=== PATIENT | female | born 1925 | race Caucasian/White ===

== ENCOUNTER 2016-09-15 00:05 | Inpatient (IN) | payer MEDICARE, BC ==
[2016-09-15] VITALS (31 sets, daily range): BP systolic 85–127; BP diastolic 41–100
[~2016-09-15] VITALS: Ht 157.5 cm; Wt 73.5 kg
[2016-09-15] MEDS ORDERED: AMIODARONE 150 MG/3 ML VIAL IV ONE ×3 (01:15→01:18)
[2016-09-15] MEDS ORDERED: IV D5W 100 ML IV ONE (01:17)
[2016-09-15] MEDS ORDERED: IV SET PRIMARY PUMP SET 1 EA INFUS.SET MC ONE ×2 (01:20→09:18)
[2016-09-15] MEDS ORDERED: AMIODARONE 900 MG in IV D5W 482 ML IV PRN (01:30)
[2016-09-15] MEDS ORDERED: AMIODARONE 150 MG in IV D5W 100 ML IV ONE (01:30)
[2016-09-15] MEDS ORDERED: ONDANSETRON HCL/PF 4 MG/2 ML VIAL IVP PRN (01:30)
[2016-09-15] MEDS ORDERED: ZOLPIDEM TARTRATE 5 MG TABLET PO PRN (01:30)
[2016-09-15] MEDS ORDERED: MAG HYDROX/AL HYDROX/SIMETH 30 ML UDC PO PRN (01:30)
[2016-09-15] MEDS ORDERED: MAGNESIUM HYDROXIDE 30 ML UDC PO PRN (01:30)
[2016-09-15] MEDS ORDERED: ENOXAPARIN SODIUM 40 MG/0.4 ML DISP.SYRIN SQ SCH ×2 (01:30→21:00)
[2016-09-15] MEDS ORDERED: HYDROCODONE/APAP 5/325MG 1 EACH TABLET PO PRN (01:30)
[2016-09-15] MEDS ORDERED: IV D5W 500 ML IV ONE ×2 (01:39→05:16)
[2016-09-15] MEDS ORDERED: ENOXAPARIN SODIUM 40 MG/0.4 ML DISP.SYRIN SQ ONE (02:39)
[2016-09-15 07:29] LABS: BASOPHILS % (AUTO) 0.2 % (0.0-2.0); DIFF TOTAL % 100 %; EOSINOPHILS # (AUTO) 0.5 /CMM (0.0-0.7); EOSINOPHILS % (AUTO) 4.1 % (0.0-6.0); HEMATOCRIT 38 % (33-45); HEMOGLOBIN 12.8 g/dL (11.5-14.8); LYMPHOCYTES # (AUTO) 3.7 /CMM (0.8-4.8); LYMPHOCYTES % (AUTO) 33.4 % (20.0-44.0); MEAN CORPUSCULAR HEMOGLOBIN 33 PG (26.0-33.0); MEAN CORPUSCULAR HGB CONC 34 g/dl (31.0-36.0); MEAN CORPUSCULAR VOLUME 97 fL (82-100); MONOCYTES # (AUTO) 1.1 /CMM (0.1-1.30); MONOCYTES % (AUTO) 10.2 % (2.0-12.0); NEUTROPHILS # (AUTO) 5.9 /CMM (1.8-8.9); NEUTROPHILS % (AUTO) 52.1 % (43.0-81.0); PLATELET COUNT (AUTO) 213 /CMM (150-450); RED BLOOD CELL COUNT(AUTO) 3.85 MIL/uL (4.0-5.2); WHITE BLOOD COUNT (AUTO) 11.2 K/uL (4.3-11.0)
[2016-09-15 07:57] LABS: CALCIUM, SERUM 8.6 mg/dL (8.5-10.1); CREATININE 1.2 mg/dL (0.6-1.3); PHOSPHORUS 4.3 mg/dL (2.5-4.9); POTASSIUM 4.4 mmol/L (3.5-5.1)
[2016-09-15 07:58] LABS: ABG BASE EXCESS 1.2 mmol/L; ABG HCO3 29.9 mmol/L; ABG NOTIFIED WHOM RN; ABG PCO2 67.2 mmHg (35.0-45.0); ABG PH 7.266 (7.350-7.450); ABG PO2 55.4 mmHg (75.0-100.0); ABG TOTAL HEMOGLOBIN 13.2 G/dL (12.0-16.0); ALLEN TEST PASSED; AaDO2 13.9 mmHg; O2Hb 83.2 % (94.0-97.0)
[2016-09-15] MEDS: ALBUTEROL HALF STRENGTH 1.25 MG/3 ML VIAL.NEB NEB PRN (08:07)
[2016-09-15] MEDS: IPRATROPIUM NEB FS 0.5 MG/2.5 ML AMPUL.NEB NEB PRN (08:07)
[2016-09-15] MEDS ORDERED: BUMETANIDE INJ 4 MG in IV NS 0.9% 24 ML IV ONE (08:30)
[2016-09-15] MEDS ORDERED: BUMETANIDE INJ 4 MG in IV NS 0.9% 24 ML IV STA (08:55)
[2016-09-15] MEDS ORDERED: FUROSEMIDE 40 MG/4 ML VIAL IV SCH (09:00)
[2016-09-15 11:16] LABS: ABG BASE EXCESS 4.6 mmol/L; ABG HCO3 30.9 mmol/L; ABG PCO2 53.5 mmHg (35.0-45.0); ABG PO2 87.3 mmHg (75.0-100.0); ALLEN TEST Pass; AaDO2 136.4 mmHg; O2Hb 94.3 % (94.0-97.0)
[2016-09-15] MEDS: Z GUARD REMEDY 2 OZ OINT TP PRN (12:42)
[2016-09-15] MEDS: PANTOPRAZOLE 40 MG VIAL IV SCH (13:19)
[2016-09-15] MEDS: ENOXAPARIN SODIUM 30 MG/0.3 ML DISP.SYRIN SQ SCH (21:20)
[2016-09-16] VITALS (34 sets, daily range): BP systolic 91–142; BP diastolic 52–96
[2016-09-16 04:42] LABS: BASOPHILS # (AUTO) 0.2 /CMM (0.0-0.2); BASOPHILS % (AUTO) 2.4 % (0.0-2.0); DIFF TOTAL % 100 %; EOSINOPHILS # (AUTO) 0.3 /CMM (0.0-0.7); EOSINOPHILS % (AUTO) 3.1 % (0.0-6.0); HEMATOCRIT 38 % (33-45); HEMOGLOBIN 13.1 g/dL (11.5-14.8); LYMPHOCYTES # (AUTO) 2.3 /CMM (0.8-4.8); LYMPHOCYTES % (AUTO) 22.6 % (20.0-44.0); MEAN CORPUSCULAR HEMOGLOBIN 33 PG (26.0-33.0); MEAN CORPUSCULAR HGB CONC 34 g/dl (31.0-36.0); MEAN CORPUSCULAR VOLUME 97 fL (82-100); MONOCYTES # (AUTO) 0.8 /CMM (0.1-1.30); MONOCYTES % (AUTO) 7.7 % (2.0-12.0); NEUTROPHILS # (AUTO) 6.6 /CMM (1.8-8.9); NEUTROPHILS % (AUTO) 64.2 % (43.0-81.0); PLATELET COUNT (AUTO) 211 /CMM (150-450); RED BLOOD CELL COUNT(AUTO) 3.93 MIL/uL (4.0-5.2); WHITE BLOOD COUNT (AUTO) 10.2 K/uL (4.3-11.0)
[2016-09-16] MEDS ORDERED: HALOPERIDOL LACTATE INJ 5 MG/ML VIAL ONE (05:08)
[2016-09-16] MEDS ORDERED: HALOPERIDOL LACTATE INJ 5 MG/ML VIAL IVP ONE (05:15)
[2016-09-16 05:51] LABS: CALCIUM, SERUM 8.8 mg/dL (8.5-10.1); CREATININE 1.4 mg/dL (0.6-1.3); PHOSPHORUS 3.6 mg/dL (2.5-4.9); POTASSIUM 3.8 mmol/L (3.5-5.1)
[2016-09-16] MEDS ORDERED: PANT40TA2 PO (07:58)
[2016-09-16] MEDS ORDERED: ARIP2TAB9 PO (07:58)
[2016-09-16] MEDS ORDERED: HYDR-4077 PO (07:58)
[2016-09-16] MEDS ORDERED: BISO5TAB7 PO (07:58)
[2016-09-16] MEDS ORDERED: MIRT15TA7 PO (07:58)
[2016-09-16] MEDS ORDERED: AMIODARONE 900 MG in IV D5W 482 ML IV PRN (08:51)
[2016-09-16] MEDS: PANTOPRAZOLE 40 MG VIAL IV SCH (08:57)
[2016-09-16] MEDS: AMIODARONE 900 MG in IV D5W 482 ML IV PRN (09:46)
[2016-09-16 10:26] LABS: ABG BASE EXCESS 2.9 mmol/L; ABG HCO3 26.9 mmol/L; ABG PH 7.456 (7.350-7.450); ABG PO2 146.8 mmHg (75.0-100.0); ABG TOTAL HEMOGLOBIN 13.1 G/dL (12.0-16.0); ALLEN TEST Pass; AaDO2 93.6 mmHg; O2Hb 96.5 % (94.0-97.0)
[2016-09-16] MEDS: methylPREDNISolone SOD SUCC 40 MG/ML VIAL IV SCH ×3 (11:12→23:27)
[2016-09-16] MEDS: ENOXAPARIN SODIUM 30 MG/0.3 ML DISP.SYRIN SQ SCH (20:35)
[2016-09-16] MEDS: MORPHINE SULFATE INJ 2 MG/ML DISP.SYRIN IV PRN (21:29)
[2016-09-17] VITALS (42 sets, daily range): BP systolic 94–156; BP diastolic 51–95
[2016-09-17 04:40] LABS: BASOPHILS % (AUTO) 0.2 % (0.0-2.0); DIFF TOTAL % 100 %; HEMATOCRIT 39 % (33-45); HEMOGLOBIN 13.1 g/dL (11.5-14.8); LYMPHOCYTES % (AUTO) 8.3 % (20.0-44.0); MEAN CORPUSCULAR HEMOGLOBIN 33 PG (26.0-33.0); MEAN CORPUSCULAR HGB CONC 33 g/dl (31.0-36.0); MEAN CORPUSCULAR VOLUME 98 fL (82-100); MONOCYTES # (AUTO) 0.2 /CMM (0.1-1.30); MONOCYTES % (AUTO) 1.6 % (2.0-12.0); NEUTROPHILS # (AUTO) 10.5 /CMM (1.8-8.9); NEUTROPHILS % (AUTO) 89.9 % (43.0-81.0); PLATELET COUNT (AUTO) 220 /CMM (150-450); WHITE BLOOD COUNT (AUTO) 11.6 K/uL (4.3-11.0)
[2016-09-17 04:54] LABS: CALCIUM, SERUM 8.9 mg/dL (8.5-10.1); CREATININE 1.4 mg/dL (0.6-1.3); PHOSPHORUS 4.4 mg/dL (2.5-4.9); POTASSIUM 3.9 mmol/L (3.5-5.1)
[2016-09-17] MEDS: methylPREDNISolone SOD SUCC 40 MG/ML VIAL IV SCH ×4 (05:12→23:14)
[2016-09-17] MEDS: MORPHINE SULFATE INJ 2 MG/ML DISP.SYRIN IV PRN (05:33)
[2016-09-17] MEDS: PANTOPRAZOLE 40 MG VIAL IV SCH (08:07)
[2016-09-17] MEDS: AMIODARONE 900 MG in IV D5W 482 ML IV PRN (09:33)
[2016-09-17] MEDS ORDERED: METOPROLOL SUCCINATE 25 MG TAB.SR.24H PO SCH (10:30)
[2016-09-17] MEDS: AMIODARONE HCL 200 MG TABLET PO SCH ×2 (11:00→20:09)
[2016-09-17] MEDS: MUPIROCIN OINT 2% 22 GM TUBE SCH ×2 (11:00→20:07)
[2016-09-17] MEDS: METOPROLOL TARTRATE 25 MG TABLET PO SCH ×2 (11:00→20:08)
[2016-09-17 11:57] LABS: ABG BASE EXCESS 4.7 mmol/L; ABG HCO3 29.7 mmol/L; ABG PCO2 45.5 mmHg (35.0-45.0); ABG PH 7.433 (7.350-7.450); ABG PO2 78.6 mmHg (75.0-100.0); ABG TOTAL HEMOGLOBIN 13.5 G/dL (12.0-16.0); ALLEN TEST Pass; AaDO2 168.8 mmHg; O2Hb 93.9 % (94.0-97.0)
[2016-09-17] MEDS: ARIPIPRAZOLE 2 MG TABLET PO SCH (13:42)
[2016-09-17] MEDS: MIRTAZAPINE 15 MG TABLET PO SCH (13:42)
[2016-09-17] MEDS: ENOXAPARIN SODIUM 30 MG/0.3 ML DISP.SYRIN SQ SCH (20:08)
[2016-09-17] MEDS ORDERED: ARIPIPRAZOLE 2 MG TABLET PO SCH (22:00)
[2016-09-17] MEDS ORDERED: MIRTAZAPINE 15 MG TABLET PO SCH (22:00)
[2016-09-18] VITALS (14 sets, daily range): BP systolic 109–175; BP diastolic 56–123
[2016-09-18 04:47] LABS: BASOPHILS # (AUTO) 0.1 /CMM (0.0-0.2); BASOPHILS % (AUTO) 0.7 % (0.0-2.0); DIFF TOTAL % 100 %; EOSINOPHILS % (AUTO) 0.1 % (0.0-6.0); HEMATOCRIT 42 % (33-45); HEMOGLOBIN 14.1 g/dL (11.5-14.8); LYMPHOCYTES # (AUTO) 0.5 /CMM (0.8-4.8); LYMPHOCYTES % (AUTO) 4.2 % (20.0-44.0); MEAN CORPUSCULAR HEMOGLOBIN 33 PG (26.0-33.0); MEAN CORPUSCULAR HGB CONC 34 g/dl (31.0-36.0); MEAN CORPUSCULAR VOLUME 97 fL (82-100); MONOCYTES % (AUTO) 8.7 % (2.0-12.0); NEUTROPHILS # (AUTO) 10.1 /CMM (1.8-8.9); NEUTROPHILS % (AUTO) 86.3 % (43.0-81.0); PLATELET COUNT (AUTO) 213 /CMM (150-450); RED BLOOD CELL COUNT(AUTO) 4.32 MIL/uL (4.0-5.2); WHITE BLOOD COUNT (AUTO) 11.7 K/uL (4.3-11.0)
[2016-09-18 05:06] LABS: CREATININE 1.6 mg/dL (0.6-1.3); POTASSIUM 4.1 mmol/L (3.5-5.1)
[2016-09-18] MEDS: methylPREDNISolone SOD SUCC 40 MG/ML VIAL IV SCH ×3 (05:12→16:49)
[2016-09-18] MEDS: METOPROLOL TARTRATE 25 MG TABLET PO SCH (08:40)
[2016-09-18] MEDS: AMIODARONE HCL 200 MG TABLET PO SCH ×2 (08:40→21:40)
[2016-09-18] MEDS: PANTOPRAZOLE 40 MG VIAL IV SCH (08:40)
[2016-09-18] MEDS: MUPIROCIN OINT 2% 22 GM TUBE SCH (08:41)
[2016-09-18] MEDS ORDERED: METOPROLOL TARTRATE 25 MG TABLET PO ONE (10:00)
[2016-09-18] MEDS ORDERED: IV NS 0.9% 1,000 ML IV PRN (11:17)
[2016-09-18] MEDS ORDERED: IV SET PRIMARY PUMP SET 1 EA INFUS.SET MC ONE (16:43)
[2016-09-18] MEDS: BOOST PLUS FOOD-CHOCLATE 237 ML BOX PO SCH (16:50)
[2016-09-18] MEDS ORDERED: METOPROLOL TARTRATE 25 MG TABLET PO SCH (21:00)
[2016-09-18] MEDS: ARIPIPRAZOLE 2 MG TABLET PO SCH (21:40)
[2016-09-18] MEDS: MIRTAZAPINE 15 MG TABLET PO SCH (21:40)
[2016-09-18] MEDS: ENOXAPARIN SODIUM 30 MG/0.3 ML DISP.SYRIN SQ SCH (21:49)
[2016-09-19] VITALS: BP 129/72
[2016-09-19] MEDS: MUPIROCIN OINT 2% 22 GM TUBE SCH ×3 (00:41→20:26)
[2016-09-19] MEDS: ALBUTEROL HALF STRENGTH 1.25 MG/3 ML VIAL.NEB NEB PRN ×2 (00:48→10:23)
[2016-09-19] MEDS: IPRATROPIUM NEB FS 0.5 MG/2.5 ML AMPUL.NEB NEB PRN ×2 (00:48→10:23)
[2016-09-19 04:00] VITALS: BP 140/68
[2016-09-19] MEDS: ACETAMINOPHEN 325 MG TABLET PO PRN (06:16)
[2016-09-19 08:00] VITALS: BP 115/53
[2016-09-19] MEDS: BOOST PLUS FOOD-CHOCLATE 237 ML BOX PO SCH ×2 (08:00→16:44)
[2016-09-19] MEDS: methylPREDNISolone SOD SUCC 40 MG/ML VIAL IV SCH ×2 (09:23→16:41)
[2016-09-19] MEDS: METOPROLOL TARTRATE 25 MG TABLET PO SCH ×2 (09:24→20:23)
[2016-09-19] MEDS: AMIODARONE HCL 200 MG TABLET PO SCH ×2 (09:24→20:23)
[2016-09-19] MEDS: PANTOPRAZOLE 40 MG VIAL IV SCH (09:27)
[2016-09-19 10:06] LABS: ABG BASE EXCESS 3.5 mmol/L; ABG HCO3 27.9 mmol/L; ABG PCO2 41.9 mmHg (35.0-45.0); ABG PH 7.442 (7.350-7.450); ABG PO2 79.7 mmHg (75.0-100.0); ALLEN TEST Pass; O2Hb 94.3 % (94.0-97.0)
[2016-09-19 12:00] VITALS: BP 91/43
[2016-09-19 16:00] VITALS: BP 105/51
[2016-09-19] MEDS: ALBUTEROL HALF STRENGTH 1.25 MG/3 ML VIAL.NEB NEB SCH ×3 (16:13→23:39)
[2016-09-19] MEDS: IPRATROPIUM NEB FS 0.5 MG/2.5 ML AMPUL.NEB NEB SCH ×3 (16:13→23:39)
[2016-09-19] MEDS: ACETYLCYSTEINE 10% SOLN 400 MG/4 ML VIAL NEB SCH ×2 (17:30→23:39)
[2016-09-19 20:00] VITALS: BP_SYST 98; BP_DIAS 58; BP_DIAS 59
[2016-09-19] MEDS: ENOXAPARIN SODIUM 30 MG/0.3 ML DISP.SYRIN SQ SCH (20:24)
[2016-09-19] MEDS: MIRTAZAPINE 15 MG TABLET PO SCH (22:35)
[2016-09-19] MEDS: ARIPIPRAZOLE 2 MG TABLET PO SCH (22:35)
[2016-09-20] VITALS (58 sets, daily range): BP systolic 61–121; BP diastolic 23–70
[2016-09-20] MEDS: MORPHINE SULFATE INJ 2 MG/ML DISP.SYRIN IV PRN ×2 (02:10→23:16)
[2016-09-20] MEDS: IPRATROPIUM NEB FS 0.5 MG/2.5 ML AMPUL.NEB NEB SCH ×6 (04:33→23:27)
[2016-09-20] MEDS: ALBUTEROL HALF STRENGTH 1.25 MG/3 ML VIAL.NEB NEB SCH ×6 (04:33→23:27)
[2016-09-20] MEDS ORDERED: METOPROLOL TARTRATE INJ 5 MG/5 ML AMPUL ONE (05:22)
[2016-09-20] MEDS ORDERED: METOPROLOL TARTRATE INJ 5 MG/5 ML AMPUL IVP PRN (05:30)
[2016-09-20] MEDS: ACETYLCYSTEINE 10% SOLN 400 MG/4 ML VIAL NEB SCH ×3 (07:12→23:27)
[2016-09-20] MEDS: BOOST PLUS FOOD-CHOCLATE 237 ML BOX PO SCH ×2 (08:00→15:45)
[2016-09-20 08:38] LABS: ABG BASE EXCESS 3.8 mmol/L; ABG HCO3 28.3 mmol/L; ABG PCO2 41.9 mmHg (35.0-45.0); ABG PH 7.447 (7.350-7.450); ABG PO2 54.9 mmHg (75.0-100.0); ABG TOTAL HEMOGLOBIN 14.6 G/dL (12.0-16.0); ALLEN TEST Pass; AaDO2 334.1 mmHg; O2Hb 85.9 % (94.0-97.0)
[2016-09-20] MEDS: AMIODARONE HCL 200 MG TABLET PO SCH (09:00)
[2016-09-20] MEDS: METOPROLOL TARTRATE 25 MG TABLET PO SCH (09:00)
[2016-09-20] MEDS: MUPIROCIN OINT 2% 22 GM TUBE SCH ×2 (09:48→20:35)
[2016-09-20] MEDS: methylPREDNISolone SOD SUCC 40 MG/ML VIAL IV SCH ×2 (09:49→16:33)
[2016-09-20] MEDS: PANTOPRAZOLE 40 MG VIAL IV SCH (09:49)
[2016-09-20] MEDS ORDERED: IV SET PRIMARY PUMP SET 1 EA INFUS.SET MC ONE ×4 (10:20→23:42)
[2016-09-20] MEDS ORDERED: AMIODARONE 150 MG in IV D5W 100 ML IV ONE (10:30)
[2016-09-20] MEDS ORDERED: FEE PK DOSING 1 MIN EA MC ONE (10:42)
[2016-09-20] MEDS: IV D5/ 0.9% NACL 1,000 ML IV SCH (10:49)
[2016-09-20] MEDS: AMIODARONE 900 MG in IV D5W 482 ML IV PRN (11:34)
[2016-09-20] MEDS: VANCOMYCIN 0.75 GM in IV D5W 250 ML IV SCH (11:37)
[2016-09-20 11:42] LABS: BASOPHILS % (AUTO) 0.1 % (0.0-2.0); DIFF TOTAL % 100 %; HEMATOCRIT 41 % (33-45); HEMOGLOBIN 13.5 g/dL (11.5-14.8); LYMPHOCYTES # (AUTO) 0.6 /CMM (0.8-4.8); LYMPHOCYTES % (AUTO) 4.3 % (20.0-44.0); MEAN CORPUSCULAR HEMOGLOBIN 32 PG (26.0-33.0); MEAN CORPUSCULAR HGB CONC 33 g/dl (31.0-36.0); MEAN CORPUSCULAR VOLUME 97 fL (82-100); MONOCYTES # (AUTO) 0.2 /CMM (0.1-1.30); MONOCYTES % (AUTO) 1.4 % (2.0-12.0); NEUTROPHILS # (AUTO) 13.6 /CMM (1.8-8.9); NEUTROPHILS % (AUTO) 94.2 % (43.0-81.0); PLATELET COUNT (AUTO) 219 /CMM (150-450); RED BLOOD CELL COUNT(AUTO) 4.18 MIL/uL (4.0-5.2); WHITE BLOOD COUNT (AUTO) 14.4 K/uL (4.3-11.0)
[2016-09-20 12:01] LABS: CALCIUM, SERUM 9.4 mg/dL (8.5-10.1); CREATININE 3.2 mg/dL (0.6-1.3); POTASSIUM 3.7 mmol/L (3.5-5.1)
[2016-09-20] MEDS ORDERED: IV NS 0.9% 250 ML IV ONE ×3 (14:17→15:00)
[2016-09-20] MEDS: PIPERACILLIN /TAZOBACTAM 2.25 G in IV D5W 50 ML IV SCH ×2 (14:42→20:36)
[2016-09-20] MEDS ORDERED: IV NS 0.9% 500 ML IV ONE (15:00)
[2016-09-20] MEDS: ENOXAPARIN SODIUM 30 MG/0.3 ML DISP.SYRIN SQ SCH (21:30)
[2016-09-20] MEDS: ARIPIPRAZOLE 2 MG TABLET PO SCH (21:45)
[2016-09-20] MEDS: MIRTAZAPINE 15 MG TABLET PO SCH (21:45)
[2016-09-20] MEDS ORDERED: IV D5W 250 ML IV ONE (23:42)
[2016-09-20] MEDS: NOREPINEPHRINE 8 MG in IV D5W 500 ML IV PRN (23:47)
[2016-09-21] VITALS (104 sets, daily range): BP systolic 10–131; BP diastolic 27–89
[2016-09-21] MEDS: IPRATROPIUM NEB FS 0.5 MG/2.5 ML AMPUL.NEB NEB SCH ×6 (02:58→23:54)
[2016-09-21] MEDS: ALBUTEROL HALF STRENGTH 1.25 MG/3 ML VIAL.NEB NEB SCH ×6 (02:58→23:54)
[2016-09-21] MEDS: IV D5/ 0.9% NACL 1,000 ML IV SCH ×3 (03:52→20:17)
[2016-09-21] MEDS: PIPERACILLIN /TAZOBACTAM 2.25 G in IV D5W 50 ML IV SCH ×3 (05:00→20:17)
[2016-09-21] MEDS: BOOST PLUS FOOD-CHOCLATE 237 ML BOX PO SCH (08:00)
[2016-09-21] MEDS: MUPIROCIN OINT 2% 22 GM TUBE SCH ×2 (08:15→20:19)
[2016-09-21] MEDS: Z GUARD REMEDY 2 OZ OINT TP PRN ×2 (08:15→20:18)
[2016-09-21] MEDS: PANTOPRAZOLE 40 MG VIAL IV SCH (08:15)
[2016-09-21] MEDS: methylPREDNISolone SOD SUCC 40 MG/ML VIAL IV SCH ×2 (08:15→16:07)
[2016-09-21] MEDS ORDERED: IV NS 0.9% 500 ML IV ONE (08:19)
[2016-09-21] MEDS: ACETYLCYSTEINE 10% SOLN 400 MG/4 ML VIAL NEB SCH ×4 (09:00→23:54)
[2016-09-21 09:11] LABS: THYROID STIMULATING HORMONE 0.184 uIU/mL (0.358-3.74)
[2016-09-21 09:25] LABS: ABG BASE EXCESS -1.7 mmol/L; ABG HCO3 22.5 mmol/L; ABG PCO2 36.4 mmHg (35.0-45.0); ABG PH 7.408 (7.350-7.450); ABG PO2 66.9 mmHg (75.0-100.0); ABG TOTAL HEMOGLOBIN 13.1 G/dL (12.0-16.0); ALLEN TEST Pass; AaDO2 609.7 mmHg; O2Hb 90.9 % (94.0-97.0)
[2016-09-21] MEDS: AMIODARONE 900 MG in IV D5W 482 ML IV PRN (09:41)
[2016-09-21] MEDS: VANCOMYCIN 0.75 GM in IV D5W 250 ML IV SCH (10:18)
[2016-09-21 10:41] LABS: DIFF TOTAL % 100 %; HEMATOCRIT 36 % (33-45); HEMOGLOBIN 11.9 g/dL (11.5-14.8); LYMPHOCYTES # (AUTO) 0.9 /CMM (0.8-4.8); LYMPHOCYTES % (AUTO) 4.9 % (20.0-44.0); MEAN CORPUSCULAR HEMOGLOBIN 32 PG (26.0-33.0); MEAN CORPUSCULAR HGB CONC 33 g/dl (31.0-36.0); MEAN CORPUSCULAR VOLUME 99 fL (82-100); MONOCYTES # (AUTO) 7.3 /CMM (0.1-1.30); NEUTROPHILS # (AUTO) 9.6 /CMM (1.8-8.9); NEUTROPHILS % (AUTO) 54.1 % (43.0-81.0); PLATELET COUNT (AUTO) 189 /CMM (150-450); RED BLOOD CELL COUNT(AUTO) 3.67 MIL/uL (4.0-5.2); WHITE BLOOD COUNT (AUTO) 17.7 K/uL (4.3-11.0)
[2016-09-21 10:54] LABS: CALCIUM, SERUM 8.4 mg/dL (8.5-10.1); CREATININE 3.8 mg/dL (0.6-1.3); POTASSIUM 3.3 mmol/L (3.5-5.1)
[2016-09-21 11:09] LABS: BAND % (MANUAL) 20 % (0.0-5.0); LYMPHOCYTES % (MANUAL) 4 % (16-48)
[2016-09-21 11:10] LABS: ANISOCYTOSIS 1+; PLATELET ESTIMATE ADEQUATE
[2016-09-21] MEDS ORDERED: SECONDARY IV SET 1 EA INFUS.SET MC ONE (12:57)
[2016-09-21] MEDS ORDERED: IV SET PRIMARY PUMP SET 1 EA INFUS.SET MC ONE (12:57)
[2016-09-21] MEDS ORDERED: ETOMIDATE 2 MG/ML VIAL IV ONE ×2 (13:00→13:30)
[2016-09-21] MEDS ORDERED: DEXTROSE 50%-WATER 50 ML DISP.SYRIN IV PRN (13:00)
[2016-09-21] MEDS ORDERED: SUCCINYLCHOLINE CHLORIDE 20 MG/ML VIAL IV ONE ×2 (13:00→13:30)
[2016-09-21] MEDS ORDERED: PROPOFOL 100 ML IV PRN (13:30)
[2016-09-21] MEDS: PROPOFOL 100 ML IV PRN ×2 (14:10→20:49)
[2016-09-21] MEDS: MORPHINE SULFATE INJ 2 MG/ML DISP.SYRIN IV PRN (14:30)
[2016-09-21] MEDS: ACETAMINOPHEN 325 MG TABLET PO PRN (16:08)
[2016-09-21 16:55] LABS: ABG BASE EXCESS -4.9 mmol/L; ABG HCO3 20.9 mmol/L; ABG PCO2 41.4 mmHg (35.0-45.0); ABG PH 7.321 (7.350-7.450); ABG PO2 78.9 mmHg (75.0-100.0); ABG TOTAL HEMOGLOBIN 13.2 G/dL (12.0-16.0); ALLEN TEST Pass; AaDO2 592.7 mmHg; O2Hb 92.5 % (94.0-97.0)
[2016-09-21] MEDS: INSULIN REGULAR, HUMAN 100 UNIT/ML 3 ML VIAL SQ PRN ×2 (17:08→23:40)
[2016-09-21] MEDS: BLOOD SUGAR DIAGNOSTIC 1 EACH STRIP IN SCH ×2 (17:09→23:33)
[2016-09-21] MEDS ORDERED: POTASSIUM CHLORIDE 20 MEQ POWDER PACKET GT ONE (17:15)
[2016-09-21] MEDS: NOREPINEPHRINE 8 MG in IV D5W 500 ML IV PRN (18:35)
[2016-09-21] MEDS: HEPARIN SODIUM, PORCINE 5000 UNITS/1 ML VIAL SQ SCH (20:19)
[2016-09-21 20:54] LABS: KETONES,URINE NEGATIVE (NEGATIVE); LEUKOCYTE ESTERASE ,URINE 1+ (NEGATIVE); PH,URINE 5.5 (5.0-8.0)
[2016-09-21 20:58] LABS: ADD UA MICROSCOPIC YES
[2016-09-21 21:10] LABS: ADD URINE CULTURE YES; FINE GRANULAR CASTS,URINE Few /LPF (None Seen)
[2016-09-21] MEDS: MIRTAZAPINE 15 MG TABLET PO SCH (22:11)
[2016-09-21] MEDS: ARIPIPRAZOLE 2 MG TABLET PO SCH (22:11)
[2016-09-22] VITALS (73 sets, daily range): BP systolic 89–134; BP diastolic 44–71
[2016-09-22] MEDS ORDERED: IV D5W 250 ML IV ONE ×2 (00:48→22:01)
[2016-09-22] MEDS ORDERED: IV SET PRIMARY PUMP SET 1 EA INFUS.SET MC ONE ×3 (00:48→22:01)
[2016-09-22] MEDS: ALBUTEROL HALF STRENGTH 1.25 MG/3 ML VIAL.NEB NEB SCH ×5 (04:00→20:04)
[2016-09-22] MEDS: IPRATROPIUM NEB FS 0.5 MG/2.5 ML AMPUL.NEB NEB SCH ×5 (04:00→20:04)
[2016-09-22 04:46] LABS: BASOPHILS % (AUTO) 0.1 % (0.0-2.0); DIFF TOTAL % 100 %; HEMATOCRIT 36 % (33-45); HEMOGLOBIN 11.7 g/dL (11.5-14.8); LYMPHOCYTES # (AUTO) 0.7 /CMM (0.8-4.8); LYMPHOCYTES % (AUTO) 2.2 % (20.0-44.0); MEAN CORPUSCULAR HEMOGLOBIN 32 PG (26.0-33.0); MEAN CORPUSCULAR HGB CONC 33 g/dl (31.0-36.0); MEAN CORPUSCULAR VOLUME 99 fL (82-100); MONOCYTES # (AUTO) 0.2 /CMM (0.1-1.30); MONOCYTES % (AUTO) 0.7 % (2.0-12.0); PLATELET COUNT (AUTO) 195 /CMM (150-450); RED BLOOD CELL COUNT(AUTO) 3.64 MIL/uL (4.0-5.2)
[2016-09-22] MEDS: NOREPINEPHRINE 8 MG in IV D5W 500 ML IV PRN ×2 (04:53→17:14)
[2016-09-22] MEDS ORDERED: MEROPENEM 500 MG in IV NS 0.9% 50 ML IV SCH (05:00)
[2016-09-22 05:04] LABS: BILIRUBIN,DIRECT 0.5 mg/dL (0.0-0.2); BILIRUBIN,TOTAL 0.8 mg/dL (0.2-1.0); CALCIUM, SERUM 8.3 mg/dL (8.5-10.1); CREATININE 4.2 mg/dL (0.6-1.3); INDIRECT BILIRUBIN 0.3 mg/dL (0.0-1.1); PHOSPHORUS 1.4 mg/dL (2.5-4.9); POTASSIUM 4.4 mmol/L (3.5-5.1); TOTAL PROTEIN, SERUM 5.7 g/dL (6.4-8.2)
[2016-09-22 05:08] LABS: ALBUMIN 1.4 g/dL (3.4-5.0)
[2016-09-22 05:10] LABS: WHITE BLOOD COUNT (AUTO) 30.9 K/uL (4.3-11.0)
[2016-09-22 05:13] LABS: BAND % (MANUAL) 11 % (0.0-5.0); LYMPHOCYTES % (MANUAL) 7 % (16-48); MYELOCYTES % 1 % (0-0)
[2016-09-22 05:15] LABS: PLATELET ESTIMATE ADEQUATE; POIKILOCYTOSIS 1+
[2016-09-22 05:16] LABS: BURR CELLS 1+
[2016-09-22] MEDS: BLOOD SUGAR DIAGNOSTIC 1 EACH STRIP IN SCH ×4 (05:26→23:43)
[2016-09-22] MEDS ORDERED: MEROPENEM 500 MG VIAL IV ONE (05:28)
[2016-09-22] MEDS ORDERED: IV NS 0.9% 50 ML IV ONE ×2 (05:34→05:36)
[2016-09-22] MEDS: INSULIN REGULAR, HUMAN 100 UNIT/ML 3 ML VIAL SQ PRN ×4 (05:35→23:49)
[2016-09-22] MEDS: PROPOFOL 100 ML IV PRN ×2 (06:01→16:59)
[2016-09-22] MEDS: ACETYLCYSTEINE 10% SOLN 400 MG/4 ML VIAL NEB SCH ×2 (07:18→14:34)
[2016-09-22] MEDS ORDERED: IV NS 0.9% 500 ML IV ONE (08:00)
[2016-09-22] MEDS: methylPREDNISolone SOD SUCC 40 MG/ML VIAL IV SCH ×2 (08:41→17:00)
[2016-09-22] MEDS: PANTOPRAZOLE 40 MG VIAL IV SCH (08:41)
[2016-09-22] MEDS: MUPIROCIN OINT 2% 22 GM TUBE SCH ×2 (08:46→21:02)
[2016-09-22] MEDS: HEPARIN SODIUM, PORCINE 5000 UNITS/1 ML VIAL SQ SCH ×2 (08:48→21:08)
[2016-09-22] MEDS ORDERED: BUMETANIDE INJ 0.25 MG/ML VIAL IV ONE (09:30)
[2016-09-22 09:45] LABS: ABG BASE EXCESS -4.6 mmol/L; ABG HCO3 18.7 mmol/L; ABG PCO2 29.5 mmHg (35.0-45.0); ABG PO2 62.8 mmHg (75.0-100.0); ABG TOTAL HEMOGLOBIN 12.6 G/dL (12.0-16.0); ALLEN TEST Pass; AaDO2 476.6 mmHg
[2016-09-22] MEDS: ALBUMIN 25% 25 GM in PREMIX 1 EA IV SCH ×3 (11:00→21:59)
[2016-09-22] MEDS: IV D5/ 0.9% NACL 1,000 ML IV PRN (11:05)
[2016-09-22] MEDS: AMIODARONE 900 MG in IV D5W 482 ML IV PRN ×2 (11:06→12:23)
[2016-09-22] MEDS: DIGOXIN INJ 0.5 MG/2 ML AMPUL IV SCH ×3 (11:59→23:57)
[2016-09-22] MEDS ORDERED: FIBERSOURCE HN 1,000 ML BOTTLE GT PRN (13:30)
[2016-09-22] MEDS: MORPHINE SULFATE INJ 2 MG/ML DISP.SYRIN IV PRN (15:34)
[2016-09-22] MEDS ORDERED: NEUTRA PHOS 1 POWD.PACKET GT ONE (17:00)
[2016-09-22] MEDS: VANCOMYCIN 500 MG in IV D5W 100 ML IV SCH (17:01)
[2016-09-22] MEDS: GLYTROL 1,000 ML BAG GT PRN (17:04)
[2016-09-22] MEDS: MIRTAZAPINE 15 MG TABLET PO SCH (21:10)
[2016-09-22] MEDS: ARIPIPRAZOLE 2 MG TABLET PO SCH (21:10)
[2016-09-22] MEDS ORDERED: IV SET PRIMARY 1 EA INFUS.SET MC ONE (22:01)
[2016-09-23] VITALS (76 sets, daily range): BP systolic 72–188; BP diastolic 35–118
[2016-09-23] MEDS: ALBUTEROL HALF STRENGTH 1.25 MG/3 ML VIAL.NEB NEB SCH ×7 (00:08→23:35)
[2016-09-23] MEDS: IPRATROPIUM NEB FS 0.5 MG/2.5 ML AMPUL.NEB NEB SCH ×7 (00:08→23:35)
[2016-09-23] MEDS: ACETYLCYSTEINE 10% SOLN 400 MG/4 ML VIAL NEB SCH ×4 (00:08→23:35)
[2016-09-23] MEDS: IV D5/ 0.9% NACL 1,000 ML IV PRN ×2 (03:58→18:23)
[2016-09-23] MEDS: ALBUMIN 25% 25 GM in PREMIX 1 EA IV SCH (04:13)
[2016-09-23 04:47] LABS: DIFF TOTAL % 100 %; EOSINOPHILS % (AUTO) 0.1 % (0.0-6.0); HEMATOCRIT 27 % (33-45); HEMOGLOBIN 9.3 g/dL (11.5-14.8); LYMPHOCYTES # (AUTO) 0.5 /CMM (0.8-4.8); LYMPHOCYTES % (AUTO) 2.4 % (20.0-44.0); MEAN CORPUSCULAR HEMOGLOBIN 33 PG (26.0-33.0); MEAN CORPUSCULAR HGB CONC 34 g/dl (31.0-36.0); MEAN CORPUSCULAR VOLUME 97 fL (82-100); MONOCYTES # (AUTO) 0.2 /CMM (0.1-1.30); MONOCYTES % (AUTO) 0.8 % (2.0-12.0); NEUTROPHILS # (AUTO) 22.3 /CMM (1.8-8.9); NEUTROPHILS % (AUTO) 96.7 % (43.0-81.0); PLATELET COUNT (AUTO) 111 /CMM (150-450); RED BLOOD CELL COUNT(AUTO) 2.83 MIL/uL (4.0-5.2); WHITE BLOOD COUNT (AUTO) 23.1 K/uL (4.3-11.0)
[2016-09-23 05:02] LABS: ALBUMIN 2.5 g/dL (3.4-5.0); BILIRUBIN,TOTAL 0.8 mg/dL (0.2-1.0); CALCIUM, SERUM 7.9 mg/dL (8.5-10.1); CREATININE 4.1 mg/dL (0.6-1.3); PHOSPHORUS 2.3 mg/dL (2.5-4.9); POTASSIUM 4.1 mmol/L (3.5-5.1); TOTAL PROTEIN, SERUM 5.4 g/dL (6.4-8.2)
[2016-09-23] MEDS: PROPOFOL 100 ML IV PRN ×2 (05:07→18:15)
[2016-09-23 05:18] LABS: TROPONIN I 0.178 ng/mL (0.00-0.056)
[2016-09-23] MEDS: BLOOD SUGAR DIAGNOSTIC 1 EACH STRIP IN SCH ×3 (06:22→18:23)
[2016-09-23] MEDS: INSULIN REGULAR, HUMAN 100 UNIT/ML 3 ML VIAL SQ PRN ×3 (06:29→18:18)
[2016-09-23] MEDS: MEROPENEM 500 MG in IV NS 0.9% 50 ML IV SCH (08:55)
[2016-09-23] MEDS: PANTOPRAZOLE 40 MG VIAL IV SCH (08:55)
[2016-09-23] MEDS: methylPREDNISolone SOD SUCC 40 MG/ML VIAL IV SCH ×2 (08:55→18:14)
[2016-09-23] MEDS: HEPARIN SODIUM, PORCINE 5000 UNITS/1 ML VIAL SQ SCH ×2 (08:56→20:33)
[2016-09-23] MEDS ORDERED: BUMETANIDE INJ 0.25 MG/ML VIAL IV ONE (09:30)
[2016-09-23] MEDS: MUPIROCIN OINT 2% 22 GM TUBE SCH ×2 (09:33→20:34)
[2016-09-23] MEDS ORDERED: METOCLOPRAMIDE HCL 10 MG/10 ML UDC GT SCH (13:00)
[2016-09-23] MEDS ORDERED: NEUTRA PHOS 1 POWD.PACKET GT ONE (16:00)
[2016-09-23] MEDS: AMIODARONE 900 MG in IV D5W 482 ML IV PRN (16:16)
[2016-09-23] MEDS: NOREPINEPHRINE 8 MG in IV D5W 500 ML IV PRN (16:23)
[2016-09-23] MEDS: MORPHINE SULFATE INJ 2 MG/ML DISP.SYRIN IV PRN (16:58)
[2016-09-23] MEDS: METOCLOPRAMIDE HCL 10 MG/2 ML VIAL IV SCH (20:32)
[2016-09-23 23:28] LABS: ABG BASE EXCESS -9.3 mmol/L; ABG HCO3 17.6 mmol/L; ABG PH 7.239 (7.350-7.450); ABG PO2 83.8 mmHg (75.0-100.0); ABG TOTAL HEMOGLOBIN 11.1 G/dL (12.0-16.0); ALLEN TEST Pass; AaDO2 587.2 mmHg; O2Hb 93.2 % (94.0-97.0)
[2016-09-24] VITALS (64 sets, daily range): BP systolic 70–159; BP diastolic 28–66
[2016-09-24] MEDS: BLOOD SUGAR DIAGNOSTIC 1 EACH STRIP IN SCH ×4 (00:10→17:26)
[2016-09-24] MEDS: INSULIN REGULAR, HUMAN 100 UNIT/ML 3 ML VIAL SQ PRN ×4 (00:38→17:29)
[2016-09-24] MEDS ORDERED: IV SET PRIMARY PUMP SET 1 EA INFUS.SET MC ONE ×3 (02:08→22:53)
[2016-09-24] MEDS: PROPOFOL 100 ML IV PRN ×3 (02:12→23:12)
[2016-09-24] MEDS: METOCLOPRAMIDE HCL 10 MG/2 ML VIAL IV SCH ×4 (02:28→20:50)
[2016-09-24] MEDS: IPRATROPIUM NEB FS 0.5 MG/2.5 ML AMPUL.NEB NEB SCH ×6 (03:43→23:33)
[2016-09-24] MEDS: ALBUTEROL HALF STRENGTH 1.25 MG/3 ML VIAL.NEB NEB SCH ×6 (03:43→23:33)
[2016-09-24 04:31] LABS: DIFF TOTAL % 100 %; HEMATOCRIT 30 % (33-45); HEMOGLOBIN 9.7 g/dL (11.5-14.8); LYMPHOCYTES # (AUTO) 1.1 /CMM (0.8-4.8); LYMPHOCYTES % (AUTO) 4.3 % (20.0-44.0); MEAN CORPUSCULAR HEMOGLOBIN 32 PG (26.0-33.0); MEAN CORPUSCULAR HGB CONC 33 g/dl (31.0-36.0); MEAN CORPUSCULAR VOLUME 97 fL (82-100); MONOCYTES # (AUTO) 0.2 /CMM (0.1-1.30); MONOCYTES % (AUTO) 0.7 % (2.0-12.0); NEUTROPHILS # (AUTO) 24.7 /CMM (1.8-8.9); PLATELET COUNT (AUTO) 111 /CMM (150-450); RED BLOOD CELL COUNT(AUTO) 3.04 MIL/uL (4.0-5.2)
[2016-09-24 04:47] LABS: CALCIUM, SERUM 7.7 mg/dL (8.5-10.1); CREATININE 4.2 mg/dL (0.6-1.3); PHOSPHORUS 3.5 mg/dL (2.5-4.9); POTASSIUM 4.5 mmol/L (3.5-5.1)
[2016-09-24] MEDS: ACETYLCYSTEINE 10% SOLN 400 MG/4 ML VIAL NEB SCH ×3 (07:42→23:33)
[2016-09-24] MEDS: PANTOPRAZOLE 40 MG VIAL IV SCH (09:29)
[2016-09-24] MEDS: methylPREDNISolone SOD SUCC 40 MG/ML VIAL IV SCH ×2 (09:29→17:27)
[2016-09-24] MEDS: MUPIROCIN OINT 2% 22 GM TUBE SCH ×2 (09:30→20:51)
[2016-09-24] MEDS: MEROPENEM 500 MG in IV NS 0.9% 50 ML IV SCH (09:31)
[2016-09-24] MEDS: IV D5/ 0.9% NACL 1,000 ML IV PRN (09:32)
[2016-09-24] MEDS: HEPARIN SODIUM, PORCINE 5000 UNITS/1 ML VIAL SQ SCH ×2 (09:32→20:52)
[2016-09-24 11:07] LABS: ABG BASE EXCESS -8.2 mmol/L; ABG HCO3 17.3 mmol/L; ABG PH 7.311 (7.350-7.450); ABG PO2 70.4 mmHg (75.0-100.0); ABG TOTAL HEMOGLOBIN 10.4 G/dL (12.0-16.0); ALLEN TEST Pass; AaDO2 463.3 mmHg; O2Hb 90.9 % (94.0-97.0)
[2016-09-24] MEDS: AMIODARONE HCL 200 MG TABLET PO SCH ×2 (11:48→20:50)
[2016-09-24] MEDS: VANCOMYCIN 500 MG in IV D5W 100 ML IV SCH (17:27)
[2016-09-24] MEDS: RIFAMPIN 300 MG CAPSULE PO SCH (20:50)
[2016-09-25] VITALS (51 sets, daily range): BP systolic 84–155; BP diastolic 34–81
[2016-09-25] MEDS: BLOOD SUGAR DIAGNOSTIC 1 EACH STRIP IN SCH ×4 (00:05→17:13)
[2016-09-25] MEDS: INSULIN REGULAR, HUMAN 100 UNIT/ML 3 ML VIAL SQ PRN ×3 (00:06→13:08)
[2016-09-25] MEDS: IV D5/ 0.9% NACL 1,000 ML IV PRN ×2 (01:11→17:16)
[2016-09-25] MEDS: IPRATROPIUM NEB FS 0.5 MG/2.5 ML AMPUL.NEB NEB SCH ×6 (03:23→23:23)
[2016-09-25] MEDS: ALBUTEROL HALF STRENGTH 1.25 MG/3 ML VIAL.NEB NEB SCH ×6 (03:23→23:23)
[2016-09-25] MEDS: METOCLOPRAMIDE HCL 10 MG/2 ML VIAL IV SCH ×4 (03:31→21:28)
[2016-09-25 05:20] LABS: DIFF TOTAL % 100 %; EOSINOPHILS % (AUTO) 0.2 % (0.0-6.0); HEMATOCRIT 29 % (33-45); HEMOGLOBIN 9.6 g/dL (11.5-14.8); LYMPHOCYTES # (AUTO) 0.4 /CMM (0.8-4.8); LYMPHOCYTES % (AUTO) 1.5 % (20.0-44.0); MEAN CORPUSCULAR HEMOGLOBIN 33 PG (26.0-33.0); MEAN CORPUSCULAR HGB CONC 34 g/dl (31.0-36.0); MEAN CORPUSCULAR VOLUME 98 fL (82-100); MONOCYTES % (AUTO) 0.2 % (2.0-12.0); NEUTROPHILS # (AUTO) 22.8 /CMM (1.8-8.9); NEUTROPHILS % (AUTO) 98.1 % (43.0-81.0); RED BLOOD CELL COUNT(AUTO) 2.93 MIL/uL (4.0-5.2); WHITE BLOOD COUNT (AUTO) 23.3 K/uL (4.3-11.0)
[2016-09-25 05:29] LABS: PLATELET COUNT (AUTO) 100 /CMM (150-450)
[2016-09-25 05:38] LABS: CALCIUM, SERUM 7.7 mg/dL (8.5-10.1); PHOSPHORUS 4.9 mg/dL (2.5-4.9); POTASSIUM 4.7 mmol/L (3.5-5.1)
[2016-09-25] MEDS: ACETYLCYSTEINE 10% SOLN 400 MG/4 ML VIAL NEB SCH ×3 (07:18→23:23)
[2016-09-25 08:19] LABS: ABG BASE EXCESS -9.7 mmol/L; ABG HCO3 15.8 mmol/L; ABG PCO2 33.3 mmHg (35.0-45.0); ABG PH 7.294 (7.350-7.450); ABG PO2 93.3 mmHg (75.0-100.0); ABG TOTAL HEMOGLOBIN 10.7 G/dL (12.0-16.0); ALLEN TEST Pass; AaDO2 442.1 mmHg; O2Hb 94.8 % (94.0-97.0)
[2016-09-25] MEDS: PANTOPRAZOLE 40 MG VIAL IV SCH (08:48)
[2016-09-25] MEDS: AMIODARONE HCL 200 MG TABLET PO SCH ×2 (08:48→21:28)
[2016-09-25] MEDS: RIFAMPIN 300 MG CAPSULE PO SCH (08:49)
[2016-09-25] MEDS: methylPREDNISolone SOD SUCC 40 MG/ML VIAL IV SCH (08:49)
[2016-09-25] MEDS: HEPARIN SODIUM, PORCINE 5000 UNITS/1 ML VIAL SQ SCH ×2 (08:50→21:30)
[2016-09-25] MEDS: MEROPENEM 500 MG in IV NS 0.9% 50 ML IV SCH (08:51)
[2016-09-25] MEDS: MUPIROCIN OINT 2% 22 GM TUBE SCH ×2 (08:51→21:29)
[2016-09-25] MEDS ORDERED: SECONDARY IV SET 1 EA INFUS.SET MC ONE (09:00)
[2016-09-25 09:04] LABS: PLATELET ESTIMATE ADEQUATE
[2016-09-25 09:05] LABS: ANISOCYTOSIS 1+
[2016-09-25 09:07] LABS: BAND % (MANUAL) 6 % (0.0-5.0); LYMPHOCYTES % (MANUAL) 2 % (16-48)
[2016-09-25] MEDS: MORPHINE SULFATE INJ 2 MG/ML DISP.SYRIN IV PRN (21:29)
[2016-09-26] VITALS (47 sets, daily range): BP systolic 80–147; BP diastolic 37–86
[2016-09-26] MEDS: BLOOD SUGAR DIAGNOSTIC 1 EACH STRIP IN SCH ×5 (00:49→23:49)
[2016-09-26] MEDS: IPRATROPIUM NEB FS 0.5 MG/2.5 ML AMPUL.NEB NEB SCH ×6 (03:40→23:16)
[2016-09-26] MEDS: ALBUTEROL HALF STRENGTH 1.25 MG/3 ML VIAL.NEB NEB SCH ×6 (03:40→23:16)
[2016-09-26] MEDS: METOCLOPRAMIDE HCL 10 MG/2 ML VIAL IV SCH ×4 (03:43→21:14)
[2016-09-26 05:26] LABS: BASOPHILS % (AUTO) 0.2 % (0.0-2.0); DIFF TOTAL % 100 %; HEMATOCRIT 31 % (33-45); HEMOGLOBIN 10.3 g/dL (11.5-14.8); LYMPHOCYTES % (AUTO) 4.8 % (20.0-44.0); MEAN CORPUSCULAR HEMOGLOBIN 33 PG (26.0-33.0); MEAN CORPUSCULAR HGB CONC 34 g/dl (31.0-36.0); MEAN CORPUSCULAR VOLUME 97 fL (82-100); MONOCYTES # (AUTO) 0.2 /CMM (0.1-1.30); MONOCYTES % (AUTO) 1.1 % (2.0-12.0); NEUTROPHILS # (AUTO) 19.6 /CMM (1.8-8.9); NEUTROPHILS % (AUTO) 93.9 % (43.0-81.0); PLATELET COUNT (AUTO) 110 /CMM (150-450); RED BLOOD CELL COUNT(AUTO) 3.15 MIL/uL (4.0-5.2); WHITE BLOOD COUNT (AUTO) 20.9 K/uL (4.3-11.0)
[2016-09-26 05:59] LABS: PLATELET ESTIMATE DECREASED
[2016-09-26 06:00] LABS: BAND % (MANUAL) 12 % (0.0-5.0); BASOPHILS % (MANUAL) 0 % (0.0-2.0); EOSINOPHILS % (MANUAL) 0 % (0-4); LYMPHOCYTES % (MANUAL) 5 % (16-48)
[2016-09-26 06:05] LABS: CALCIUM, SERUM 7.9 mg/dL (8.5-10.1); CREATININE 3.7 mg/dL (0.6-1.3); PHOSPHORUS 5.2 mg/dL (2.5-4.9)
[2016-09-26] MEDS: ACETYLCYSTEINE 10% SOLN 400 MG/4 ML VIAL NEB SCH ×3 (07:20→23:16)
[2016-09-26 08:15] LABS: ABG BASE EXCESS -10.9 mmol/L; ABG HCO3 14.8 mmol/L; ABG PCO2 32.3 mmHg (35.0-45.0); ABG PH 7.279 (7.350-7.450); ABG PO2 95.6 mmHg (75.0-100.0); ABG TOTAL HEMOGLOBIN 11.1 G/dL (12.0-16.0); ALLEN TEST Pass; AaDO2 332.7 mmHg; O2Hb 94.5 % (94.0-97.0)
[2016-09-26] MEDS: MEROPENEM 500 MG in IV NS 0.9% 50 ML IV SCH (08:52)
[2016-09-26] MEDS: IV D5/ 0.9% NACL 1,000 ML IV PRN (08:58)
[2016-09-26] MEDS: PANTOPRAZOLE 40 MG VIAL IV SCH (08:59)
[2016-09-26] MEDS: AMIODARONE HCL 200 MG TABLET PO SCH ×2 (08:59→21:15)
[2016-09-26] MEDS: RIFAMPIN 300 MG CAPSULE PO SCH (08:59)
[2016-09-26] MEDS: HEPARIN SODIUM, PORCINE 5000 UNITS/1 ML VIAL SQ SCH ×2 (09:01→21:00)
[2016-09-26] MEDS: MUPIROCIN OINT 2% 22 GM TUBE SCH ×2 (09:05→21:16)
[2016-09-26] MEDS: METOPROLOL TARTRATE 25 MG TABLET PO SCH ×2 (09:05→21:00)
[2016-09-26] MEDS: GLYTROL 1,000 ML BAG GT PRN (11:50)
[2016-09-26] MEDS: VANCOMYCIN 500 MG in IV D5W 100 ML IV SCH (17:21)
[2016-09-26] MEDS: INSULIN REGULAR, HUMAN 100 UNIT/ML 3 ML VIAL SQ PRN (23:51)
[2016-09-27] VITALS (88 sets, daily range): BP systolic 77–169; BP diastolic 27–79
[2016-09-27] MEDS: METOCLOPRAMIDE HCL 10 MG/2 ML VIAL IV SCH ×4 (02:57→20:36)
[2016-09-27] MEDS: IV D5/ 0.9% NACL 1,000 ML IV PRN ×2 (02:58→15:17)
[2016-09-27] MEDS: ALBUTEROL HALF STRENGTH 1.25 MG/3 ML VIAL.NEB NEB SCH ×6 (03:53→23:47)
[2016-09-27] MEDS: IPRATROPIUM NEB FS 0.5 MG/2.5 ML AMPUL.NEB NEB SCH ×6 (03:53→23:47)
[2016-09-27 04:44] LABS: BASOPHILS % (AUTO) 0.1 % (0.0-2.0); DIFF TOTAL % 100 %; HEMATOCRIT 28 % (33-45); HEMOGLOBIN 9.6 g/dL (11.5-14.8); LYMPHOCYTES # (AUTO) 0.5 /CMM (0.8-4.8); LYMPHOCYTES % (AUTO) 2.3 % (20.0-44.0); MEAN CORPUSCULAR HEMOGLOBIN 33 PG (26.0-33.0); MEAN CORPUSCULAR HGB CONC 34 g/dl (31.0-36.0); MEAN CORPUSCULAR VOLUME 97 fL (82-100); MONOCYTES # (AUTO) 0.1 /CMM (0.1-1.30); MONOCYTES % (AUTO) 0.6 % (2.0-12.0); NEUTROPHILS # (AUTO) 21.1 /CMM (1.8-8.9); RED BLOOD CELL COUNT(AUTO) 2.92 MIL/uL (4.0-5.2); WHITE BLOOD COUNT (AUTO) 21.7 K/uL (4.3-11.0)
[2016-09-27 05:01] LABS: CALCIUM, SERUM 7.7 mg/dL (8.5-10.1); POTASSIUM 5.8 mmol/L (3.5-5.1)
[2016-09-27 05:02] LABS: PLATELET COUNT (AUTO) 101 /CMM (150-450)
[2016-09-27 05:51] LABS: BAND % (MANUAL) 12 % (0.0-5.0); BASOPHILS % (MANUAL) 0 % (0.0-2.0); EOSINOPHILS % (MANUAL) 0 % (0-4); LYMPHOCYTES % (MANUAL) 2 % (16-48); PLATELET ESTIMATE DECREASED
[2016-09-27 05:52] LABS: ANISOCYTOSIS 1+; SCHISTOCYTES 1+
[2016-09-27] MEDS: BLOOD SUGAR DIAGNOSTIC 1 EACH STRIP IN SCH ×3 (06:10→17:39)
[2016-09-27] MEDS: INSULIN REGULAR, HUMAN 100 UNIT/ML 3 ML VIAL SQ PRN ×2 (06:18→18:19)
[2016-09-27] MEDS: ACETYLCYSTEINE 10% SOLN 400 MG/4 ML VIAL NEB SCH ×3 (07:46→23:47)
[2016-09-27] MEDS: PANTOPRAZOLE 40 MG VIAL IV SCH (08:15)
[2016-09-27] MEDS: RIFAMPIN 300 MG CAPSULE PO SCH (08:15)
[2016-09-27] MEDS: MEROPENEM 500 MG in IV NS 0.9% 50 ML IV SCH (08:15)
[2016-09-27] MEDS: AMIODARONE HCL 200 MG TABLET PO SCH ×2 (08:16→20:35)
[2016-09-27] MEDS: METOPROLOL TARTRATE 25 MG TABLET PO SCH ×2 (08:17→21:00)
[2016-09-27] MEDS: Z GUARD REMEDY 2 OZ OINT TP PRN (08:17)
[2016-09-27] MEDS: HEPARIN SODIUM, PORCINE 5000 UNITS/1 ML VIAL SQ SCH ×2 (08:18→20:37)
[2016-09-27] MEDS: MUPIROCIN OINT 2% 22 GM TUBE SCH ×2 (08:19→20:36)
[2016-09-27 08:32] LABS: ABG BASE EXCESS -12.1 mmol/L; ABG HCO3 14.1 mmol/L; ABG PCO2 32.7 mmHg (35.0-45.0); ABG PH 7.251 (7.350-7.450); ABG PO2 67.5 mmHg (75.0-100.0); ABG TOTAL HEMOGLOBIN 10.4 G/dL (12.0-16.0); ALLEN TEST Pass; AaDO2 180.1 mmHg; O2Hb 88.5 % (94.0-97.0)
[2016-09-27] MEDS ORDERED: SECONDARY IV SET 1 EA INFUS.SET MC ONE (08:39)
[2016-09-27 08:48] LABS: INR 0.97 (0.87-1.13); PROTHROMBIN TIME 10.5 SECS (9.5-12.7)
[2016-09-27] MEDS ORDERED: IV SET PRIMARY PUMP SET 1 EA INFUS.SET MC ONE ×2 (09:55→20:04)
[2016-09-27] MEDS: MORPHINE SULFATE INJ 2 MG/ML DISP.SYRIN IV PRN (10:01)
[2016-09-27] MEDS: NOREPINEPHRINE 8 MG in IV D5W 500 ML IV PRN ×2 (10:02→18:17)
[2016-09-27] MEDS: PROPOFOL 100 ML IV PRN ×2 (10:02→22:02)
[2016-09-27] MEDS: GLYTROL 1,000 ML BAG GT PRN (17:39)
[2016-09-28] VITALS (100 sets, daily range): BP systolic 68–151; BP diastolic 28–74
[2016-09-28] MEDS: METOCLOPRAMIDE HCL 10 MG/2 ML VIAL IV SCH ×4 (03:12→20:14)
[2016-09-28] MEDS: IPRATROPIUM NEB FS 0.5 MG/2.5 ML AMPUL.NEB NEB SCH ×6 (03:49→23:32)
[2016-09-28] MEDS: ALBUTEROL HALF STRENGTH 1.25 MG/3 ML VIAL.NEB NEB SCH ×6 (03:49→23:32)
[2016-09-28] MEDS: IV D5/ 0.9% NACL 1,000 ML IV PRN (04:23)
[2016-09-28 04:53] LABS: DIFF TOTAL % 100 %; EOSINOPHILS # (AUTO) 0.1 /CMM (0.0-0.7); EOSINOPHILS % (AUTO) 0.3 % (0.0-6.0); HEMATOCRIT 29 % (33-45); HEMOGLOBIN 9.8 g/dL (11.5-14.8); LYMPHOCYTES # (AUTO) 0.7 /CMM (0.8-4.8); MEAN CORPUSCULAR HEMOGLOBIN 32 PG (26.0-33.0); MEAN CORPUSCULAR HGB CONC 34 g/dl (31.0-36.0); MEAN CORPUSCULAR VOLUME 96 fL (82-100); MONOCYTES # (AUTO) 0.1 /CMM (0.1-1.30); MONOCYTES % (AUTO) 0.4 % (2.0-12.0); NEUTROPHILS # (AUTO) 21.8 /CMM (1.8-8.9); NEUTROPHILS % (AUTO) 96.3 % (43.0-81.0); PLATELET COUNT (AUTO) 111 /CMM (150-450); RED BLOOD CELL COUNT(AUTO) 3.02 MIL/uL (4.0-5.2); WHITE BLOOD COUNT (AUTO) 22.7 K/uL (4.3-11.0)
[2016-09-28 05:04] LABS: CALCIUM, SERUM 7.5 mg/dL (8.5-10.1); CREATININE 3.2 mg/dL (0.6-1.3)
[2016-09-28 05:21] LABS: LYMPHOCYTES % (MANUAL) 6 % (16-48)
[2016-09-28 05:23] LABS: PLATELET ESTIMATE DECRE
[2016-09-28] MEDS: BLOOD SUGAR DIAGNOSTIC 1 EACH STRIP IN SCH ×4 (05:55→18:25)
[2016-09-28] MEDS ORDERED: NOREPINEPHRINE 4 MG/4 ML AMPUL IV ONE (06:32)
[2016-09-28] MEDS ORDERED: IV D5W 500 ML IV ONE (06:33)
[2016-09-28] MEDS: NOREPINEPHRINE 8 MG in IV D5W 500 ML IV PRN (06:41)
[2016-09-28] MEDS: ACETYLCYSTEINE 10% SOLN 400 MG/4 ML VIAL NEB SCH ×3 (07:59→23:32)
[2016-09-28] MEDS: METOPROLOL TARTRATE 25 MG TABLET PO SCH (09:00)
[2016-09-28] MEDS: MUPIROCIN OINT 2% 22 GM TUBE SCH ×2 (09:12→20:24)
[2016-09-28] MEDS: MEROPENEM 500 MG in IV NS 0.9% 50 ML IV SCH (10:31)
[2016-09-28] MEDS: PANTOPRAZOLE 40 MG VIAL IV SCH (10:32)
[2016-09-28] MEDS: AMIODARONE HCL 200 MG TABLET PO SCH ×2 (10:32→20:16)
[2016-09-28] MEDS: RIFAMPIN 300 MG CAPSULE PO SCH (10:32)
[2016-09-28] MEDS: HEPARIN SODIUM, PORCINE 5000 UNITS/1 ML VIAL SQ SCH ×2 (10:33→20:17)
[2016-09-28] MEDS: NOREPINEPHRINE 16 MG in IV D5W 500 ML IV PRN (10:39)
[2016-09-28 10:41] LABS: ABG BASE EXCESS 0.1 mmol/L; ABG HCO3 23.6 mmol/L; ABG PCO2 34.3 mmHg (35.0-45.0); ABG PH 7.456 (7.350-7.450); ABG PO2 106.1 mmHg (75.0-100.0); ABG TOTAL HEMOGLOBIN 10.5 G/dL (12.0-16.0); ALLEN TEST Pass; AaDO2 139.7 mmHg; O2Hb 96.2 % (94.0-97.0)
[2016-09-28] MEDS: RENAL NOVASOURCE 1,000 ML BOTTLE GT PRN (11:31)
[2016-09-28] MEDS: INSULIN REGULAR, HUMAN 100 UNIT/ML 3 ML VIAL SQ PRN (12:23)
[2016-09-28] MEDS: VANCOMYCIN 500 MG in IV D5W 100 ML IV PRN (14:07)
[2016-09-29] VITALS (80 sets, daily range): BP systolic 88–141; BP diastolic 27–75
[2016-09-29] MEDS: BLOOD SUGAR DIAGNOSTIC 1 EACH STRIP IN SCH ×4 (00:33→17:55)
[2016-09-29] MEDS: IPRATROPIUM NEB FS 0.5 MG/2.5 ML AMPUL.NEB NEB SCH ×6 (03:16→23:05)
[2016-09-29] MEDS: ALBUTEROL HALF STRENGTH 1.25 MG/3 ML VIAL.NEB NEB SCH ×6 (03:16→23:05)
[2016-09-29] MEDS: METOCLOPRAMIDE HCL 10 MG/2 ML VIAL IV SCH ×4 (03:50→21:00)
[2016-09-29 05:23] LABS: DIFF TOTAL % 100 %; EOSINOPHILS % (AUTO) 0.3 % (0.0-6.0); HEMATOCRIT 27 % (33-45); LYMPHOCYTES # (AUTO) 0.8 /CMM (0.8-4.8); LYMPHOCYTES % (AUTO) 4.6 % (20.0-44.0); MEAN CORPUSCULAR HEMOGLOBIN 32 PG (26.0-33.0); MEAN CORPUSCULAR HGB CONC 34 g/dl (31.0-36.0); MEAN CORPUSCULAR VOLUME 95 fL (82-100); MONOCYTES % (AUTO) 0.1 % (2.0-12.0); NEUTROPHILS # (AUTO) 15.8 /CMM (1.8-8.9); PLATELET COUNT (AUTO) 106 /CMM (150-450); WHITE BLOOD COUNT (AUTO) 16.6 K/uL (4.3-11.0)
[2016-09-29 05:31] LABS: CALCIUM, SERUM 7.2 mg/dL (8.5-10.1); CREATININE 2.5 mg/dL (0.6-1.3); PHOSPHORUS 5.8 mg/dL (2.5-4.9)
[2016-09-29 05:40] LABS: BAND % (MANUAL) 3 % (0.0-5.0); LYMPHOCYTES % (MANUAL) 3 % (16-48); PLATELET ESTIMATE DECREASED
[2016-09-29 05:41] LABS: ANISOCYTOSIS 1+
[2016-09-29] MEDS: ACETYLCYSTEINE 10% SOLN 400 MG/4 ML VIAL NEB SCH ×3 (07:57→23:05)
[2016-09-29] MEDS: RIFAMPIN 300 MG CAPSULE PO SCH (08:24)
[2016-09-29] MEDS: MEROPENEM 500 MG in IV NS 0.9% 50 ML IV SCH (08:24)
[2016-09-29] MEDS: PANTOPRAZOLE 40 MG VIAL IV SCH (08:24)
[2016-09-29] MEDS: MUPIROCIN OINT 2% 22 GM TUBE SCH ×2 (08:25→21:00)
[2016-09-29] MEDS: AMIODARONE HCL 200 MG TABLET PO SCH ×2 (08:26→21:00)
[2016-09-29 09:45] LABS: ABG BASE EXCESS -2.5 mmol/L; ABG HCO3 19.8 mmol/L; ABG PCO2 26.2 mmHg (35.0-45.0); ABG PH 7.497 (7.350-7.450); ABG PO2 77.8 mmHg (75.0-100.0); ABG TOTAL HEMOGLOBIN 9.8 G/dL (12.0-16.0); AaDO2 177.3 mmHg; O2Hb 93.1 % (94.0-97.0)
[2016-09-29] MEDS: IV D5/ 0.9% NACL 1,000 ML IV PRN ×2 (12:39→17:55)
[2016-09-29] MEDS: NOREPINEPHRINE 16 MG in IV D5W 500 ML IV PRN (16:00)
[2016-09-29] MEDS: RENAL NOVASOURCE 1,000 ML BOTTLE GT PRN (17:55)
[2016-09-30] VITALS (74 sets, daily range): BP systolic 89–139; BP diastolic 24–68
[2016-09-30] MEDS: BLOOD SUGAR DIAGNOSTIC 1 EACH STRIP IN SCH ×4 (00:22→17:36)
[2016-09-30] MEDS: ALBUTEROL HALF STRENGTH 1.25 MG/3 ML VIAL.NEB NEB SCH ×6 (02:58→23:30)
[2016-09-30] MEDS: IPRATROPIUM NEB FS 0.5 MG/2.5 ML AMPUL.NEB NEB SCH ×6 (02:58→23:30)
[2016-09-30] MEDS: METOCLOPRAMIDE HCL 10 MG/2 ML VIAL IV SCH ×4 (03:14→20:38)
[2016-09-30 04:52] LABS: MEAN CORPUSCULAR HEMOGLOBIN 32 PG (26.0-33.0)
[2016-09-30 05:08] LABS: CALCIUM, SERUM 6.8 mg/dL (8.5-10.1); CREATININE 2.9 mg/dL (0.6-1.3); PHOSPHORUS 6.8 mg/dL (2.5-4.9); POTASSIUM 5.1 mmol/L (3.5-5.1)
[2016-09-30] MEDS: ACETYLCYSTEINE 10% SOLN 400 MG/4 ML VIAL NEB SCH ×3 (07:00→23:30)
[2016-09-30 07:51] LABS: BASOPHILS % (AUTO) 0.1 % (0.0-2.0); DIFF TOTAL % 100 %; EOSINOPHILS # (AUTO) 0.1 /CMM (0.0-0.7); EOSINOPHILS % (AUTO) 0.5 % (0.0-6.0); HEMATOCRIT 24 % (33-45); LYMPHOCYTES # (AUTO) 0.4 /CMM (0.8-4.8); LYMPHOCYTES % (AUTO) 3.1 % (20.0-44.0); MEAN CORPUSCULAR HGB CONC 34 g/dl (31.0-36.0); MEAN CORPUSCULAR VOLUME 95 fL (82-100); MONOCYTES % (AUTO) 0.2 % (2.0-12.0); NEUTROPHILS # (AUTO) 11.3 /CMM (1.8-8.9); NEUTROPHILS % (AUTO) 96.1 % (43.0-81.0); PLATELET COUNT (AUTO) 106 /CMM (150-450); WHITE BLOOD COUNT (AUTO) 11.8 K/uL (4.3-11.0)
[2016-09-30 08:35] LABS: ABG BASE EXCESS -2.8 mmol/L; ABG PCO2 27.1 mmHg (35.0-45.0); ABG PH 7.485 (7.350-7.450); ABG PO2 73.2 mmHg (75.0-100.0); ABG TOTAL HEMOGLOBIN 8.6 G/dL (12.0-16.0); ALLEN TEST Pass; AaDO2 180.8 mmHg; O2Hb 91.6 % (94.0-97.0)
[2016-09-30] MEDS: MEROPENEM 500 MG in IV NS 0.9% 50 ML IV SCH (09:43)
[2016-09-30] MEDS: RIFAMPIN 300 MG CAPSULE PO SCH (09:43)
[2016-09-30] MEDS: AMIODARONE HCL 200 MG TABLET PO SCH ×2 (09:43→20:39)
[2016-09-30] MEDS: PANTOPRAZOLE 40 MG VIAL IV SCH (09:44)
[2016-09-30] MEDS: MUPIROCIN OINT 2% 22 GM TUBE SCH ×2 (09:45→20:38)
[2016-09-30] MEDS ORDERED: SECONDARY IV SET 1 EA INFUS.SET MC ONE ×2 (12:30→16:51)
[2016-09-30] MEDS: ALBUMIN 25% 25 GM in PREMIX 1 EA IV SCH ×2 (12:34→17:36)
[2016-09-30] MEDS: ALBUMIN 25% 25 GM in PREMIX 1 EA IV PRN (15:50)
[2016-09-30] MEDS: LACTOBACILLUS RHAMNOSUS GG 1 EACH CAP.SPRINK PO SCH (16:12)
[2016-09-30] MEDS: VANCOMYCIN 500 MG in IV D5W 100 ML IV PRN (16:55)
[2016-10-01] VITALS (42 sets, daily range): BP systolic 105–142; BP diastolic 35–69
[2016-10-01] MEDS: IV D5/ 0.9% NACL 1,000 ML IV PRN (00:19)
[2016-10-01] MEDS: ALBUMIN 25% 25 GM in PREMIX 1 EA IV SCH ×2 (00:20→05:13)
[2016-10-01] MEDS: IPRATROPIUM NEB FS 0.5 MG/2.5 ML AMPUL.NEB NEB SCH ×7 (00:30→23:24)
[2016-10-01] MEDS: ALBUTEROL HALF STRENGTH 1.25 MG/3 ML VIAL.NEB NEB SCH ×7 (00:31→23:24)
[2016-10-01] MEDS: ACETYLCYSTEINE 10% SOLN 400 MG/4 ML VIAL NEB SCH ×4 (00:31→23:24)
[2016-10-01] MEDS: BLOOD SUGAR DIAGNOSTIC 1 EACH STRIP IN SCH ×4 (00:34→17:24)
[2016-10-01] MEDS: METOCLOPRAMIDE HCL 10 MG/2 ML VIAL IV SCH ×4 (03:01→21:52)
[2016-10-01] MEDS: RENAL NOVASOURCE 1,000 ML BOTTLE GT PRN (04:53)
[2016-10-01 05:54] LABS: ALBUMIN 2.5 g/dL (3.4-5.0); CALCIUM, SERUM 8.3 mg/dL (8.5-10.1); CREATININE 2.2 mg/dL (0.6-1.3); PHOSPHORUS 4.9 mg/dL (2.5-4.9); POTASSIUM 3.9 mmol/L (3.5-5.1); TOTAL PROTEIN, SERUM 5.7 g/dL (6.4-8.2)
[2016-10-01 05:56] LABS: BASOPHILS % (AUTO) 0.1 % (0.0-2.0); DIFF TOTAL % 100 %; EOSINOPHILS % (AUTO) 0.4 % (0.0-6.0); LYMPHOCYTES # (AUTO) 0.4 /CMM (0.8-4.8); LYMPHOCYTES % (AUTO) 5.1 % (20.0-44.0); MEAN CORPUSCULAR HEMOGLOBIN 32 PG (26.0-33.0); MEAN CORPUSCULAR HGB CONC 34 g/dl (31.0-36.0); MEAN CORPUSCULAR VOLUME 95 fL (82-100); MONOCYTES % (AUTO) 0.4 % (2.0-12.0); NEUTROPHILS # (AUTO) 6.7 /CMM (1.8-8.9); PLATELET COUNT (AUTO) 85 /CMM (150-450); RED BLOOD CELL COUNT(AUTO) 2.04 MIL/uL (4.0-5.2); WHITE BLOOD COUNT (AUTO) 7.2 K/uL (4.3-11.0)
[2016-10-01 06:09] LABS: HEMATOCRIT 19 % (33-45)
[2016-10-01 06:12] LABS: HEMOGLOBIN 6.5 g/dL (11.5-14.8)
[2016-10-01] MEDS: RIFAMPIN 300 MG CAPSULE PO SCH (09:03)
[2016-10-01] MEDS: PANTOPRAZOLE 40 MG VIAL IV SCH (09:04)
[2016-10-01] MEDS: LACTOBACILLUS RHAMNOSUS GG 1 EACH CAP.SPRINK PO SCH ×2 (09:04→17:28)
[2016-10-01] MEDS: MEROPENEM 500 MG in IV NS 0.9% 50 ML IV SCH (09:04)
[2016-10-01] MEDS: AMIODARONE HCL 200 MG TABLET PO SCH (09:04)
[2016-10-01] MEDS: MUPIROCIN OINT 2% 22 GM TUBE SCH ×2 (09:05→21:52)
[2016-10-01] MEDS ORDERED: BLOOD IV SET 1 EA INFUS.SET MC ONE (10:22)
[2016-10-01] MEDS ORDERED: IV NS 0.9% 250 ML IV ONE (10:23)
[2016-10-01 11:15] LABS: LYMPHOCYTES % (MANUAL) 5 % (16-48); PLATELET ESTIMATE DECREASED
[2016-10-01 11:23] LABS: ABG HCO3 25.3 mmol/L; ABG PCO2 32.9 mmHg (35.0-45.0); ABG PH 7.503 (7.350-7.450); ABG PO2 75.6 mmHg (75.0-100.0); ABG TOTAL HEMOGLOBIN 6.9 G/dL (12.0-16.0); ALLEN TEST Pass; AaDO2 171.8 mmHg; O2Hb 91.5 % (94.0-97.0)
[2016-10-01] MEDS: INSULIN REGULAR, HUMAN 100 UNIT/ML 3 ML VIAL SQ PRN (17:37)
[2016-10-01 19:23] LABS: HEMOGLOBIN 9.5 g/dL (11.5-14.8)
[2016-10-02] VITALS (46 sets, daily range): BP systolic 102–169; BP diastolic 39–96
[2016-10-02] MEDS: METOCLOPRAMIDE HCL 10 MG/2 ML VIAL IV SCH ×4 (03:21→20:58)
[2016-10-02] MEDS: RENAL NOVASOURCE 1,000 ML BOTTLE GT PRN (03:21)
[2016-10-02] MEDS: IV D5/ 0.9% NACL 1,000 ML IV PRN (03:21)
[2016-10-02] MEDS: ALBUTEROL HALF STRENGTH 1.25 MG/3 ML VIAL.NEB NEB SCH ×6 (03:22→23:00)
[2016-10-02] MEDS: IPRATROPIUM NEB FS 0.5 MG/2.5 ML AMPUL.NEB NEB SCH ×6 (03:22→23:00)
[2016-10-02 04:45] LABS: BASOPHILS % (AUTO) 0.3 % (0.0-2.0); DIFF TOTAL % 100 %; EOSINOPHILS # (AUTO) 0.1 /CMM (0.0-0.7); EOSINOPHILS % (AUTO) 1.6 % (0.0-6.0); HEMATOCRIT 29 % (33-45); HEMOGLOBIN 9.8 g/dL (11.5-14.8); LYMPHOCYTES # (AUTO) 0.4 /CMM (0.8-4.8); LYMPHOCYTES % (AUTO) 5.3 % (20.0-44.0); MEAN CORPUSCULAR HEMOGLOBIN 32 PG (26.0-33.0); MEAN CORPUSCULAR HGB CONC 34 g/dl (31.0-36.0); MEAN CORPUSCULAR VOLUME 93 fL (82-100); MONOCYTES % (AUTO) 0.3 % (2.0-12.0); NEUTROPHILS # (AUTO) 6.2 /CMM (1.8-8.9); NEUTROPHILS % (AUTO) 92.5 % (43.0-81.0); PLATELET COUNT (AUTO) 84 /CMM (150-450); WHITE BLOOD COUNT (AUTO) 6.7 K/uL (4.3-11.0)
[2016-10-02 05:08] LABS: CALCIUM, SERUM 7.9 mg/dL (8.5-10.1); CREATININE 2.8 mg/dL (0.6-1.3); POTASSIUM 3.8 mmol/L (3.5-5.1)
[2016-10-02 05:36] LABS: BAND % (MANUAL) 19 % (0.0-5.0); BASOPHILS % (MANUAL) 0 % (0.0-2.0); EOSINOPHILS % (MANUAL) 0 % (0-4); LYMPHOCYTES % (MANUAL) 4 % (16-48)
[2016-10-02 05:37] LABS: ANISOCYTOSIS 1+; PLATELET ESTIMATE DECREASED; TARGET CELLS 1+
[2016-10-02] MEDS: BLOOD SUGAR DIAGNOSTIC 1 EACH STRIP IN SCH ×4 (06:07→18:17)
[2016-10-02] MEDS: ACETYLCYSTEINE 10% SOLN 400 MG/4 ML VIAL NEB SCH ×3 (07:25→23:00)
[2016-10-02] MEDS: MUPIROCIN OINT 2% 22 GM TUBE SCH ×2 (09:00→20:58)
[2016-10-02 09:36] LABS: ABG BASE EXCESS 0.1 mmol/L; ABG HCO3 23.1 mmol/L; ABG PCO2 31.7 mmHg (35.0-45.0); ABG PH 7.481 (7.350-7.450); ABG PO2 84.9 mmHg (75.0-100.0); ABG TOTAL HEMOGLOBIN 10.4 G/dL (12.0-16.0); ALLEN TEST Pass; AaDO2 163.8 mmHg; O2Hb 94.4 % (94.0-97.0)
[2016-10-02] MEDS: MEROPENEM 500 MG in IV NS 0.9% 50 ML IV SCH (10:43)
[2016-10-02] MEDS: LACTOBACILLUS RHAMNOSUS GG 1 EACH CAP.SPRINK PO SCH ×2 (10:44→17:33)
[2016-10-02] MEDS: RIFAMPIN 300 MG CAPSULE PO SCH (10:44)
[2016-10-02] MEDS: METOPROLOL TARTRATE 25 MG TABLET PO SCH ×2 (10:44→20:58)
[2016-10-02] MEDS: AMIODARONE HCL 200 MG TABLET PO SCH (10:44)
[2016-10-02] MEDS: PANTOPRAZOLE 40 MG VIAL IV SCH (10:45)
[2016-10-02] MEDS ORDERED: VANCOMYCIN 1 GM in IV D5W 250 ML IV ONE (18:00)
[2016-10-02] MEDS ORDERED: SECONDARY IV SET 1 EA INFUS.SET MC ONE (20:52)
[2016-10-03] VITALS (39 sets, daily range): BP systolic 108–156; BP diastolic 53–75
[2016-10-03] MEDS: BLOOD SUGAR DIAGNOSTIC 1 EACH STRIP IN SCH ×5 (00:18→23:49)
[2016-10-03] MEDS: METOCLOPRAMIDE HCL 10 MG/2 ML VIAL IV SCH ×4 (02:17→21:30)
[2016-10-03] MEDS: IPRATROPIUM NEB FS 0.5 MG/2.5 ML AMPUL.NEB NEB SCH ×6 (03:40→23:04)
[2016-10-03] MEDS: ALBUTEROL HALF STRENGTH 1.25 MG/3 ML VIAL.NEB NEB SCH ×6 (03:40→23:05)
[2016-10-03 05:02] LABS: BASOPHILS % (AUTO) 0.1 % (0.0-2.0); DIFF TOTAL % 100 %; EOSINOPHILS # (AUTO) 0.1 /CMM (0.0-0.7); EOSINOPHILS % (AUTO) 3.2 % (0.0-6.0); HEMATOCRIT 29 % (33-45); HEMOGLOBIN 9.8 g/dL (11.5-14.8); LYMPHOCYTES # (AUTO) 0.3 /CMM (0.8-4.8); LYMPHOCYTES % (AUTO) 5.7 % (20.0-44.0); MEAN CORPUSCULAR HEMOGLOBIN 31 PG (26.0-33.0); MEAN CORPUSCULAR HGB CONC 34 g/dl (31.0-36.0); MEAN CORPUSCULAR VOLUME 93 fL (82-100); MONOCYTES # (AUTO) 0.2 /CMM (0.1-1.30); MONOCYTES % (AUTO) 4.4 % (2.0-12.0); NEUTROPHILS # (AUTO) 3.9 /CMM (1.8-8.9); NEUTROPHILS % (AUTO) 86.6 % (43.0-81.0); PLATELET COUNT (AUTO) 68 /CMM (150-450); RED BLOOD CELL COUNT(AUTO) 3.13 MIL/uL (4.0-5.2); WHITE BLOOD COUNT (AUTO) 4.5 K/uL (4.3-11.0)
[2016-10-03 05:10] LABS: CALCIUM, SERUM 7.5 mg/dL (8.5-10.1); CREATININE 2.1 mg/dL (0.6-1.3); POTASSIUM 3.6 mmol/L (3.5-5.1)
[2016-10-03] MEDS: IV D5/ 0.9% NACL 1,000 ML IV PRN (05:41)
[2016-10-03] MEDS: RENAL NOVASOURCE 1,000 ML BOTTLE GT PRN (05:41)
[2016-10-03 06:11] LABS: ANISOCYTOSIS 1+; BAND % (MANUAL) 18 % (0.0-5.0); BASOPHILS % (MANUAL) 0 % (0.0-2.0); EOSINOPHILS % (MANUAL) 8 % (0-4); LYMPHOCYTES % (MANUAL) 6 % (16-48); PLATELET ESTIMATE DECREASED
[2016-10-03 06:12] LABS: TARGET CELLS 1+
[2016-10-03] MEDS: ACETYLCYSTEINE 10% SOLN 400 MG/4 ML VIAL NEB SCH ×3 (06:55→23:04)
[2016-10-03] MEDS: MUPIROCIN OINT 2% 22 GM TUBE SCH ×2 (09:00→21:30)
[2016-10-03] MEDS: MEROPENEM 500 MG in IV NS 0.9% 50 ML IV SCH (10:06)
[2016-10-03] MEDS: PANTOPRAZOLE 40 MG VIAL IV SCH (10:10)
[2016-10-03] MEDS: METOPROLOL TARTRATE 25 MG TABLET PO SCH ×2 (10:11→21:31)
[2016-10-03] MEDS: AMIODARONE HCL 200 MG TABLET PO SCH (10:11)
[2016-10-03] MEDS: LACTOBACILLUS RHAMNOSUS GG 1 EACH CAP.SPRINK PO SCH ×2 (10:11→17:16)
[2016-10-03] MEDS: RIFAMPIN 300 MG CAPSULE PO SCH (10:11)
[2016-10-03 10:17] LABS: ABG BASE EXCESS 2.2 mmol/L; ABG HCO3 25.4 mmol/L; ABG PCO2 34.5 mmHg (35.0-45.0); ABG PH 7.485 (7.350-7.450); ABG PO2 79.5 mmHg (75.0-100.0); ABG TOTAL HEMOGLOBIN 10.4 G/dL (12.0-16.0); ALLEN TEST Pass; O2Hb 93.5 % (94.0-97.0)
[2016-10-04] VITALS (47 sets, daily range): BP systolic 95–142; BP diastolic 44–76
[2016-10-04] MEDS: METOCLOPRAMIDE HCL 10 MG/2 ML VIAL IV SCH ×4 (02:42→20:44)
[2016-10-04] MEDS: ALBUTEROL HALF STRENGTH 1.25 MG/3 ML VIAL.NEB NEB SCH ×6 (03:34→23:06)
[2016-10-04] MEDS: IPRATROPIUM NEB FS 0.5 MG/2.5 ML AMPUL.NEB NEB SCH ×6 (03:34→23:06)
[2016-10-04 04:50] LABS: BASOPHILS % (AUTO) 0.2 % (0.0-2.0); DIFF TOTAL % 100 %; EOSINOPHILS # (AUTO) 0.2 /CMM (0.0-0.7); EOSINOPHILS % (AUTO) 4.1 % (0.0-6.0); HEMATOCRIT 29 % (33-45); HEMOGLOBIN 9.7 g/dL (11.5-14.8); LYMPHOCYTES # (AUTO) 0.4 /CMM (0.8-4.8); LYMPHOCYTES % (AUTO) 9.7 % (20.0-44.0); MEAN CORPUSCULAR HEMOGLOBIN 32 PG (26.0-33.0); MEAN CORPUSCULAR HGB CONC 34 g/dl (31.0-36.0); MEAN CORPUSCULAR VOLUME 93 fL (82-100); MONOCYTES % (AUTO) 0.9 % (2.0-12.0); NEUTROPHILS # (AUTO) 3.4 /CMM (1.8-8.9); NEUTROPHILS % (AUTO) 85.1 % (43.0-81.0); PLATELET COUNT (AUTO) 89 /CMM (150-450); RED BLOOD CELL COUNT(AUTO) 3.07 MIL/uL (4.0-5.2)
[2016-10-04 05:06] LABS: CALCIUM, SERUM 7.2 mg/dL (8.5-10.1); CREATININE 2.5 mg/dL (0.6-1.3); PHOSPHORUS 4.8 mg/dL (2.5-4.9); POTASSIUM 3.8 mmol/L (3.5-5.1)
[2016-10-04] MEDS: RENAL NOVASOURCE 1,000 ML BOTTLE GT PRN (05:42)
[2016-10-04] MEDS: IV D5/ 0.9% NACL 1,000 ML IV PRN (05:42)
[2016-10-04] MEDS: BLOOD SUGAR DIAGNOSTIC 1 EACH STRIP IN SCH ×4 (05:56→23:59)
[2016-10-04 06:05] LABS: BAND % (MANUAL) 51 % (0.0-5.0); EOSINOPHILS % (MANUAL) 5 % (0-4); LYMPHOCYTES % (MANUAL) 10 % (16-48)
[2016-10-04 06:06] LABS: ANISOCYTOSIS 1+; BASOPHILS % (MANUAL) 0 % (0.0-2.0); PLATELET ESTIMATE DECREASED
[2016-10-04] MEDS: ACETYLCYSTEINE 10% SOLN 400 MG/4 ML VIAL NEB SCH ×3 (07:33→23:06)
[2016-10-04] MEDS: PANTOPRAZOLE 40 MG VIAL IV SCH (08:15)
[2016-10-04] MEDS: RIFAMPIN 300 MG CAPSULE PO SCH (08:15)
[2016-10-04] MEDS: LACTOBACILLUS RHAMNOSUS GG 1 EACH CAP.SPRINK PO SCH ×2 (08:15→16:25)
[2016-10-04] MEDS: AMIODARONE HCL 200 MG TABLET PO SCH (08:30)
[2016-10-04] MEDS: METOPROLOL TARTRATE 25 MG TABLET PO SCH ×2 (08:31→20:45)
[2016-10-04] MEDS: Z GUARD REMEDY 2 OZ OINT TP PRN (08:32)
[2016-10-04] MEDS: MUPIROCIN OINT 2% 22 GM TUBE SCH ×2 (08:32→20:45)
[2016-10-04] MEDS ORDERED: PANTOPRAZOLE 40 MG VIAL IV SCH (10:00)
[2016-10-04] MEDS ORDERED: HYDROGEL DRESSING 90 GM TUBE TP SCH (12:00)
[2016-10-04] MEDS: VANCOMYCIN 500 MG in IV D5W 100 ML IV PRN (12:26)
[2016-10-04] MEDS ORDERED: HYDROGEL DRESSING 90 GM TUBE TP PRN (13:00)
[2016-10-04] MEDS ORDERED: Magnesium 1GM/D5W 100ML PREMIX PIGGYBACK IV ONE (13:30)
[2016-10-04] MEDS ORDERED: Magnesium 1GM/D5W 100ML PREMIX 100 ML IV SCH (13:30)
[2016-10-04] MEDS ORDERED: SECONDARY IV SET 1 EA INFUS.SET MC ONE (13:48)
[2016-10-04 14:12] LABS: THYROID STIMULATING HORMONE 2.566 uIU/mL (0.358-3.74); URIC ACID 5.7 mg/dL (2.6-7.2)
[2016-10-05] VITALS (38 sets, daily range): BP systolic 80–150; BP diastolic 30–74
[2016-10-05] MEDS: METOCLOPRAMIDE HCL 10 MG/2 ML VIAL IV SCH ×4 (02:49→20:08)
[2016-10-05] MEDS: ALBUTEROL HALF STRENGTH 1.25 MG/3 ML VIAL.NEB NEB SCH ×6 (04:04→23:38)
[2016-10-05] MEDS: IPRATROPIUM NEB FS 0.5 MG/2.5 ML AMPUL.NEB NEB SCH ×6 (04:04→23:38)
[2016-10-05 04:53] LABS: BASOPHILS % (AUTO) 0.2 % (0.0-2.0); DIFF TOTAL % 100 %; EOSINOPHILS # (AUTO) 0.2 /CMM (0.0-0.7); HEMATOCRIT 28 % (33-45); HEMOGLOBIN 9.6 g/dL (11.5-14.8); LYMPHOCYTES # (AUTO) 0.4 /CMM (0.8-4.8); LYMPHOCYTES % (AUTO) 10.4 % (20.0-44.0); MEAN CORPUSCULAR HEMOGLOBIN 31 PG (26.0-33.0); MEAN CORPUSCULAR HGB CONC 34 g/dl (31.0-36.0); MEAN CORPUSCULAR VOLUME 92 fL (82-100); MONOCYTES # (AUTO) 0.2 /CMM (0.1-1.30); MONOCYTES % (AUTO) 5.2 % (2.0-12.0); NEUTROPHILS # (AUTO) 3.2 /CMM (1.8-8.9); NEUTROPHILS % (AUTO) 79.2 % (43.0-81.0); PLATELET COUNT (AUTO) 106 /CMM (150-450); RED BLOOD CELL COUNT(AUTO) 3.07 MIL/uL (4.0-5.2); WHITE BLOOD COUNT (AUTO) 4.1 K/uL (4.3-11.0)
[2016-10-05 05:05] LABS: CREATININE 2.1 mg/dL (0.6-1.3); PHOSPHORUS 4.4 mg/dL (2.5-4.9); POTASSIUM 3.6 mmol/L (3.5-5.1)
[2016-10-05 05:30] LABS: BAND % (MANUAL) 18 % (0.0-5.0); EOSINOPHILS % (MANUAL) 1 % (0-4); LYMPHOCYTES % (MANUAL) 15 % (16-48); PLATELET ESTIMATE DECREASED
[2016-10-05 05:31] LABS: ANISOCYTOSIS 1+
[2016-10-05] MEDS: RENAL NOVASOURCE 1,000 ML BOTTLE GT PRN (06:17)
[2016-10-05] MEDS: IV D5/ 0.9% NACL 1,000 ML IV PRN (06:17)
[2016-10-05] MEDS: BLOOD SUGAR DIAGNOSTIC 1 EACH STRIP IN SCH ×4 (06:24→23:41)
[2016-10-05 06:37] LABS: INR 1.12 (0.87-1.13); PROTHROMBIN TIME 12.1 SECS (9.5-12.7)
[2016-10-05] MEDS: ACETYLCYSTEINE 10% SOLN 400 MG/4 ML VIAL NEB SCH ×3 (07:51→23:38)
[2016-10-05 08:15] LABS: ABG BASE EXCESS 0.1 mmol/L; ABG PH 7.441 (7.350-7.450); ABG PO2 74.8 mmHg (75.0-100.0); ABG TOTAL HEMOGLOBIN 10.2 G/dL (12.0-16.0); ALLEN TEST Pass; O2Hb 91.5 % (94.0-97.0)
[2016-10-05] MEDS: AMIODARONE HCL 200 MG TABLET PO SCH (08:15)
[2016-10-05] MEDS: LACTOBACILLUS RHAMNOSUS GG 1 EACH CAP.SPRINK PO SCH ×2 (08:15→16:24)
[2016-10-05] MEDS: METOPROLOL TARTRATE 25 MG TABLET PO SCH ×2 (08:15→20:08)
[2016-10-05] MEDS: PANTOPRAZOLE 40 MG VIAL IV SCH (08:15)
[2016-10-05] MEDS: RIFAMPIN 300 MG CAPSULE PO SCH (08:15)
[2016-10-05] MEDS: HYDROGEL DRESSING 90 GM TUBE TP SCH (08:16)
[2016-10-05] MEDS: Z GUARD REMEDY 2 OZ OINT TP PRN (08:17)
[2016-10-05] MEDS: MUPIROCIN OINT 2% 22 GM TUBE SCH ×2 (08:17→20:07)
[2016-10-05] MEDS ORDERED: SECONDARY IV SET 1 EA INFUS.SET MC ONE (10:29)
[2016-10-05] MEDS: ALBUMIN 25% 25 GM in PREMIX 1 EA IV PRN (10:33)
[2016-10-05] MEDS: VANCOMYCIN 500 MG in IV D5W 100 ML IV PRN (15:14)
[2016-10-05] MEDS: ACETAMINOPHEN 325 MG TABLET PO PRN (20:08)
[2016-10-06] VITALS (39 sets, daily range): BP systolic 91–144; BP diastolic 40–138
[2016-10-06] MEDS: METOCLOPRAMIDE HCL 10 MG/2 ML VIAL IV SCH ×4 (02:03→20:03)
[2016-10-06] MEDS: ALBUTEROL HALF STRENGTH 1.25 MG/3 ML VIAL.NEB NEB SCH ×6 (03:22→23:53)
[2016-10-06] MEDS: IPRATROPIUM NEB FS 0.5 MG/2.5 ML AMPUL.NEB NEB SCH ×6 (03:22→23:53)
[2016-10-06 04:55] LABS: BASOPHILS % (AUTO) 0.3 % (0.0-2.0); DIFF TOTAL % 100 %; EOSINOPHILS # (AUTO) 0.2 /CMM (0.0-0.7); EOSINOPHILS % (AUTO) 5.1 % (0.0-6.0); HEMATOCRIT 25 % (33-45); HEMOGLOBIN 8.4 g/dL (11.5-14.8); LYMPHOCYTES # (AUTO) 0.5 /CMM (0.8-4.8); LYMPHOCYTES % (AUTO) 10.9 % (20.0-44.0); MEAN CORPUSCULAR HEMOGLOBIN 31 PG (26.0-33.0); MEAN CORPUSCULAR HGB CONC 33 g/dl (31.0-36.0); MEAN CORPUSCULAR VOLUME 92 fL (82-100); MONOCYTES # (AUTO) 0.2 /CMM (0.1-1.30); MONOCYTES % (AUTO) 4.4 % (2.0-12.0); NEUTROPHILS # (AUTO) 3.8 /CMM (1.8-8.9); NEUTROPHILS % (AUTO) 79.3 % (43.0-81.0); PLATELET COUNT (AUTO) 115 /CMM (150-450); RED BLOOD CELL COUNT(AUTO) 2.74 MIL/uL (4.0-5.2); WHITE BLOOD COUNT (AUTO) 4.8 K/uL (4.3-11.0)
[2016-10-06 04:59] LABS: CALCIUM, SERUM 6.9 mg/dL (8.5-10.1); CREATININE 2.5 mg/dL (0.6-1.3); POTASSIUM 3.4 mmol/L (3.5-5.1)
[2016-10-06] MEDS: BLOOD SUGAR DIAGNOSTIC 1 EACH STRIP IN SCH ×3 (05:31→17:57)
[2016-10-06] MEDS: IV D5/ 0.9% NACL 1,000 ML IV PRN (06:09)
[2016-10-06] MEDS: ACETYLCYSTEINE 10% SOLN 400 MG/4 ML VIAL NEB SCH ×3 (07:42→23:54)
[2016-10-06 08:44] LABS: ABG BASE EXCESS 0.1 mmol/L; ABG HCO3 24.7 mmol/L; ABG PCO2 39.8 mmHg (35.0-45.0); ABG PO2 78.6 mmHg (75.0-100.0); ABG TOTAL HEMOGLOBIN 9.6 G/dL (12.0-16.0); ALLEN TEST Pass; AaDO2 160.8 mmHg; O2Hb 92.8 % (94.0-97.0)
[2016-10-06] MEDS: PANTOPRAZOLE 40 MG VIAL IV SCH (09:21)
[2016-10-06] MEDS: AMIODARONE HCL 200 MG TABLET PO SCH (09:22)
[2016-10-06] MEDS: LACTOBACILLUS RHAMNOSUS GG 1 EACH CAP.SPRINK PO SCH ×2 (09:22→17:57)
[2016-10-06] MEDS: POTASSIUM CHLORIDE 20 MEQ TAB.PRT.SR PO SCH ×2 (09:22→10:23)
[2016-10-06] MEDS: METOPROLOL TARTRATE 25 MG TABLET PO SCH ×2 (09:22→20:04)
[2016-10-06] MEDS: RIFAMPIN 300 MG CAPSULE PO SCH (09:22)
[2016-10-06] MEDS: MUPIROCIN OINT 2% 22 GM TUBE SCH ×2 (09:23→20:04)
[2016-10-06] MEDS: HYDROGEL DRESSING 90 GM TUBE TP SCH (09:23)
[2016-10-06] MEDS: RENAL NOVASOURCE 1,000 ML BOTTLE GT PRN (15:15)
[2016-10-06] MEDS ORDERED: BLOOD IV SET 1 EA INFUS.SET MC ONE (16:49)
[2016-10-06] MEDS ORDERED: IV NS 0.9% 250 ML IV ONE (16:49)
[2016-10-06] MEDS: ACETAMINOPHEN 325 MG TABLET PO PRN (18:20)
[2016-10-07] VITALS (42 sets, daily range): BP systolic 90–133; BP diastolic 30–75
[2016-10-07] MEDS: BLOOD SUGAR DIAGNOSTIC 1 EACH STRIP IN SCH ×5 (00:12→23:59)
[2016-10-07] MEDS: ACETAMINOPHEN 325 MG TABLET PO PRN ×2 (00:31→15:59)
[2016-10-07] MEDS: ALBUTEROL HALF STRENGTH 1.25 MG/3 ML VIAL.NEB NEB SCH ×6 (03:30→19:56)
[2016-10-07] MEDS: IPRATROPIUM NEB FS 0.5 MG/2.5 ML AMPUL.NEB NEB SCH ×6 (03:30→19:56)
[2016-10-07] MEDS: METOCLOPRAMIDE HCL 10 MG/2 ML VIAL IV SCH ×4 (03:48→21:13)
[2016-10-07 04:57] LABS: BASOPHILS % (AUTO) 0.3 % (0.0-2.0); DIFF TOTAL % 100 %; EOSINOPHILS # (AUTO) 0.2 /CMM (0.0-0.7); EOSINOPHILS % (AUTO) 5.3 % (0.0-6.0); HEMATOCRIT 30 % (33-45); LYMPHOCYTES # (AUTO) 0.6 /CMM (0.8-4.8); LYMPHOCYTES % (AUTO) 17.9 % (20.0-44.0); MEAN CORPUSCULAR HEMOGLOBIN 31 PG (26.0-33.0); MEAN CORPUSCULAR HGB CONC 34 g/dl (31.0-36.0); MEAN CORPUSCULAR VOLUME 92 fL (82-100); MONOCYTES # (AUTO) 0.1 /CMM (0.1-1.30); MONOCYTES % (AUTO) 3.9 % (2.0-12.0); NEUTROPHILS # (AUTO) 2.6 /CMM (1.8-8.9); NEUTROPHILS % (AUTO) 72.6 % (43.0-81.0); PLATELET COUNT (AUTO) 138 /CMM (150-450); RED BLOOD CELL COUNT(AUTO) 3.19 MIL/uL (4.0-5.2); WHITE BLOOD COUNT (AUTO) 3.6 K/uL (4.3-11.0)
[2016-10-07 04:58] LABS: CALCIUM, SERUM 6.8 mg/dL (8.5-10.1); CREATININE 2.6 mg/dL (0.6-1.3); POTASSIUM 3.9 mmol/L (3.5-5.1)
[2016-10-07 05:58] LABS: ANISOCYTOSIS 1+; BAND % (MANUAL) 57 % (0.0-5.0); BASOPHILS % (MANUAL) 0 % (0.0-2.0); EOSINOPHILS % (MANUAL) 7 % (0-4); LYMPHOCYTES % (MANUAL) 15 % (16-48); PLATELET ESTIMATE DECREASED
[2016-10-07] MEDS: IV D5/ 0.9% NACL 1,000 ML IV PRN (06:17)
[2016-10-07] MEDS: PANTOPRAZOLE 40 MG VIAL IV SCH (07:57)
[2016-10-07] MEDS: LACTOBACILLUS RHAMNOSUS GG 1 EACH CAP.SPRINK PO SCH ×2 (07:57→16:13)
[2016-10-07] MEDS: RIFAMPIN 300 MG CAPSULE PO SCH (07:57)
[2016-10-07] MEDS: ACETYLCYSTEINE 10% SOLN 400 MG/4 ML VIAL NEB SCH ×2 (07:58→15:22)
[2016-10-07] MEDS: AMIODARONE HCL 200 MG TABLET PO SCH (07:58)
[2016-10-07] MEDS: METOPROLOL TARTRATE 25 MG TABLET PO SCH ×2 (07:58→21:13)
[2016-10-07] MEDS: HYDROGEL DRESSING 90 GM TUBE TP SCH (07:59)
[2016-10-07] MEDS: MUPIROCIN OINT 2% 22 GM TUBE SCH ×2 (07:59→21:15)
[2016-10-07] MEDS: FUROSEMIDE 20 MG/2 ML VIAL IV SCH (11:07)
[2016-10-07] MEDS ORDERED: SECONDARY IV SET 1 EA INFUS.SET MC ONE ×2 (11:13→19:42)
[2016-10-07] MEDS: ALBUMIN 25% 25 GM in PREMIX 1 EA IV PRN (11:18)
[2016-10-07] MEDS: RENAL NOVASOURCE 1,000 ML BOTTLE GT PRN (15:31)
[2016-10-07] MEDS: MEROPENEM 500 MG in IV NS 0.9% 50 ML IV SCH (19:42)
[2016-10-07] MEDS: MICAFUNGIN SODIUM 100 MG in IV NS 0.9% 100 ML IV SCH (19:42)
[2016-10-07] MEDS: METRONIDAZOLE 500 MG TABLET PO SCH (21:13)
[2016-10-08] VITALS (37 sets, daily range): BP systolic 100–141; BP diastolic 51–81
[2016-10-08 01:11] LABS: VIT D, 25-HYDROXY 21.9 ng/mL (30.0-100.0)
[2016-10-08] MEDS: IV D5/ 0.9% NACL 1,000 ML IV PRN (02:14)
[2016-10-08] MEDS: METOCLOPRAMIDE HCL 10 MG/2 ML VIAL IV SCH ×4 (02:17→20:50)
[2016-10-08] MEDS: ALBUTEROL HALF STRENGTH 1.25 MG/3 ML VIAL.NEB NEB SCH ×7 (04:15→22:54)
[2016-10-08] MEDS: IPRATROPIUM NEB FS 0.5 MG/2.5 ML AMPUL.NEB NEB SCH ×7 (04:16→22:55)
[2016-10-08 04:52] LABS: BASOPHILS % (AUTO) 0.3 % (0.0-2.0); DIFF TOTAL % 100 %; EOSINOPHILS # (AUTO) 0.2 /CMM (0.0-0.7); EOSINOPHILS % (AUTO) 2.9 % (0.0-6.0); HEMATOCRIT 27 % (33-45); HEMOGLOBIN 9.2 g/dL (11.5-14.8); LYMPHOCYTES # (AUTO) 1.4 /CMM (0.8-4.8); LYMPHOCYTES % (AUTO) 18.2 % (20.0-44.0); MEAN CORPUSCULAR HEMOGLOBIN 31 PG (26.0-33.0); MEAN CORPUSCULAR HGB CONC 34 g/dl (31.0-36.0); MEAN CORPUSCULAR VOLUME 93 fL (82-100); MONOCYTES # (AUTO) 0.4 /CMM (0.1-1.30); MONOCYTES % (AUTO) 5.6 % (2.0-12.0); NEUTROPHILS # (AUTO) 5.6 /CMM (1.8-8.9); PLATELET COUNT (AUTO) 164 /CMM (150-450); RED BLOOD CELL COUNT(AUTO) 2.94 MIL/uL (4.0-5.2); WHITE BLOOD COUNT (AUTO) 7.7 K/uL (4.3-11.0)
[2016-10-08 05:03] LABS: CREATININE 2.1 mg/dL (0.6-1.3); POTASSIUM 3.5 mmol/L (3.5-5.1)
[2016-10-08] MEDS: METRONIDAZOLE 500 MG TABLET PO SCH ×3 (05:30→20:50)
[2016-10-08] MEDS: BLOOD SUGAR DIAGNOSTIC 1 EACH STRIP IN SCH ×3 (06:09→17:43)
[2016-10-08] MEDS: MEROPENEM 500 MG in IV NS 0.9% 50 ML IV SCH ×2 (06:09→17:59)
[2016-10-08] MEDS: ACETYLCYSTEINE 10% SOLN 400 MG/4 ML VIAL NEB SCH ×4 (07:11→22:55)
[2016-10-08] MEDS: FUROSEMIDE 20 MG/2 ML VIAL IV SCH (08:06)
[2016-10-08] MEDS: LACTOBACILLUS RHAMNOSUS GG 1 EACH CAP.SPRINK PO SCH ×2 (08:06→16:46)
[2016-10-08] MEDS: RIFAMPIN 300 MG CAPSULE PO SCH (08:06)
[2016-10-08] MEDS: PANTOPRAZOLE 40 MG VIAL IV SCH (08:06)
[2016-10-08] MEDS: AMIODARONE HCL 200 MG TABLET PO SCH (08:07)
[2016-10-08] MEDS: HYDROGEL DRESSING 90 GM TUBE TP SCH (08:08)
[2016-10-08] MEDS: MUPIROCIN OINT 2% 22 GM TUBE SCH ×2 (08:08→20:51)
[2016-10-08] MEDS: METOPROLOL TARTRATE 25 MG TABLET PO SCH ×2 (08:27→20:50)
[2016-10-08] MEDS ORDERED: PETROLATUM,WHITE PACKET 5 GM PACKET TP PRN (10:00)
[2016-10-08] MEDS: ACETAMINOPHEN 325 MG TABLET PO PRN (12:05)
[2016-10-08] MEDS: RENAL NOVASOURCE 1,000 ML BOTTLE GT PRN (18:06)
[2016-10-08] MEDS: MICAFUNGIN SODIUM 100 MG in IV NS 0.9% 100 ML IV SCH (18:24)
[2016-10-09] VITALS (26 sets, daily range): BP systolic 0–137; BP diastolic 0–74
[2016-10-09] MEDS: BLOOD SUGAR DIAGNOSTIC 1 EACH STRIP IN SCH ×2 (00:36→05:05)
[2016-10-09] MEDS: IV D5/ 0.9% NACL 1,000 ML IV PRN (02:16)
[2016-10-09] MEDS: METOCLOPRAMIDE HCL 10 MG/2 ML VIAL IV SCH ×2 (02:38→08:07)
[2016-10-09] MEDS: IPRATROPIUM NEB FS 0.5 MG/2.5 ML AMPUL.NEB NEB SCH ×2 (02:55→07:25)
[2016-10-09] MEDS: ALBUTEROL HALF STRENGTH 1.25 MG/3 ML VIAL.NEB NEB SCH ×2 (02:55→07:25)
[2016-10-09 04:19] LABS: BASOPHILS % (AUTO) 0.2 % (0.0-2.0); DIFF TOTAL % 100 %; EOSINOPHILS # (AUTO) 0.2 /CMM (0.0-0.7); EOSINOPHILS % (AUTO) 2.8 % (0.0-6.0); HEMATOCRIT 28 % (33-45); HEMOGLOBIN 9.4 g/dL (11.5-14.8); LYMPHOCYTES # (AUTO) 1.1 /CMM (0.8-4.8); LYMPHOCYTES % (AUTO) 14.5 % (20.0-44.0); MEAN CORPUSCULAR HEMOGLOBIN 32 PG (26.0-33.0); MEAN CORPUSCULAR HGB CONC 34 g/dl (31.0-36.0); MEAN CORPUSCULAR VOLUME 94 fL (82-100); MONOCYTES # (AUTO) 0.4 /CMM (0.1-1.30); MONOCYTES % (AUTO) 5.8 % (2.0-12.0); NEUTROPHILS # (AUTO) 5.7 /CMM (1.8-8.9); NEUTROPHILS % (AUTO) 76.7 % (43.0-81.0); PLATELET COUNT (AUTO) 192 /CMM (150-450); RED BLOOD CELL COUNT(AUTO) 2.98 MIL/uL (4.0-5.2); WHITE BLOOD COUNT (AUTO) 7.4 K/uL (4.3-11.0)
[2016-10-09 04:23] LABS: CREATININE 2.3 mg/dL (0.6-1.3); PHOSPHORUS 4.3 mg/dL (2.5-4.9)
[2016-10-09] MEDS: METRONIDAZOLE 500 MG TABLET PO SCH (05:05)
[2016-10-09] MEDS: MEROPENEM 500 MG in IV NS 0.9% 50 ML IV SCH (06:14)
[2016-10-09] MEDS: ACETYLCYSTEINE 10% SOLN 400 MG/4 ML VIAL NEB SCH (07:25)
[2016-10-09] MEDS: METOPROLOL TARTRATE 25 MG TABLET PO SCH (08:06)
[2016-10-09] MEDS: RIFAMPIN 300 MG CAPSULE PO SCH (08:06)
[2016-10-09] MEDS: FUROSEMIDE 20 MG/2 ML VIAL IV SCH (08:06)
[2016-10-09] MEDS: LACTOBACILLUS RHAMNOSUS GG 1 EACH CAP.SPRINK PO SCH (08:07)
[2016-10-09] MEDS: PANTOPRAZOLE 40 MG VIAL IV SCH (08:07)
[2016-10-09] MEDS: MUPIROCIN OINT 2% 22 GM TUBE SCH (08:07)
[2016-10-09] MEDS: HYDROGEL DRESSING 90 GM TUBE TP SCH (08:08)
[2016-10-09] MEDS: AMIODARONE HCL 200 MG TABLET PO SCH (08:09)
[2016-10-09] MEDS ORDERED: SECONDARY IV SET 1 EA INFUS.SET MC ONE (09:11)
[2016-10-09] MEDS: POTASSIUM CL. PREMIX PERIPHER. 50 ML IV SCH ×2 (09:15→10:35)
[2016-10-09] MEDS ORDERED: MORPHINE SULFATE PF DRIP 250 MG in IV D5W 240 ML IV PRN (11:00)
[2016-10-09] MEDS ORDERED: LORAZEPAM INJ 2 MG/ML VIAL IV PRN (11:00)
[2016-10-09] MEDS ORDERED: MORPHINE SULFATE INJ 4 MG/ML DISP.SYRIN IV ONE (11:00)
[2016-10-09] MEDS ORDERED: AMIODARONE HCL 200 MG TABLET PO SCH (11:30)
[2016-10-09] MEDS ORDERED: ENOXAPARIN SODIUM 30 MG/0.3 ML DISP.SYRIN SQ SCH (11:30)
[2016-10-09] MEDS ORDERED: ZOLPIDEM TARTRATE 5 MG TABLET PO PRN (11:30)
[2016-10-09] MEDS ORDERED: SET PCA INFUSE SET 1 EA INFUS.SET MC ONE (12:33)
== END 2016-10-09 20:02 | disposition expired | DRG 870 ==
LOC: OBSVTOIN 00:05 → TELE 00:05 → TELE-TD 00:39 → ICU 08:54 → TELE-TD 09:04 → ICU 09:10 → TELE1 09-18 04:52 → ICU 09-20 09:14
PROVIDERS: ADMIT Family Medicine
PROC: 5A09457 Assistance with Respiratory Ventilation, 24-96 Consecutive Hours, Continuous Positive Airway Pressure (ICD-10-PCS; 2016-09-16)
PROC: 02HV33Z Insertion of Infusion Device into Superior Vena Cava, Percutaneous Approach (ICD-10-PCS; 2016-09-20)
PROC: B548ZZA Ultrasonography of Superior Vena Cava, Guidance (ICD-10-PCS; 2016-09-20)
PROC: 5A1955Z Respiratory Ventilation, Greater than 96 Consecutive Hours (ICD-10-PCS; principal; 2016-09-21)
PROC: 0BH17EZ Insertion of Endotracheal Airway into Trachea, Via Natural or Artificial Opening (ICD-10-PCS; 2016-09-21)
PROC: 0W9930Z Drainage of Right Pleural Cavity with Drainage Device, Percutaneous Approach (ICD-10-PCS; 2016-09-23)
PROC: 02HV33Z Insertion of Infusion Device into Superior Vena Cava, Percutaneous Approach (ICD-10-PCS; 2016-09-23)
PROC: B548ZZA Ultrasonography of Superior Vena Cava, Guidance (ICD-10-PCS; 2016-09-23)
PROC: 30233N1 Transfusion of Nonautologous Red Blood Cells into Peripheral Vein, Percutaneous Approach (ICD-10-PCS; 2016-10-01)
DX: A41.02 Sepsis due to Methicillin resistant Staphylococcus aureus (principal); I50.33 Acute on chronic diastolic (congestive) heart failure; J96.01 Acute respiratory failure with hypoxia; Z51.5 Encounter for palliative care; J96.02 Acute respiratory failure with hypercapnia; R65.21 Severe sepsis with septic shock; J96.22 Acute and chronic respiratory failure with hypercapnia; N17.0 Acute kidney failure with tubular necrosis; E43 Unspecified severe protein-calorie malnutrition; G92 Toxic encephalopathy; J15.212 Pneumonia due to Methicillin resistant Staphylococcus aureus; J96.21 Acute and chronic respiratory failure with hypoxia; D68.59 Other primary thrombophilia; I13.0 Hypertensive heart and chronic kidney disease with heart failure and stage 1 through stage 4 chronic kidney disease, or unspecified chronic kidney disease; F03.91 Unspecified dementia, unspecified severity, with behavioral disturbance; J93.9 Pneumothorax, unspecified; I48.1 Persistent atrial fibrillation; J44.0 Chronic obstructive pulmonary disease with (acute) lower respiratory infection; J98.11 Atelectasis; N39.0 Urinary tract infection, site not specified; T79.7XXA Traumatic subcutaneous emphysema, initial encounter; D72.829 Elevated white blood cell count, unspecified; I48.0 Paroxysmal atrial fibrillation; N18.9 Chronic kidney disease, unspecified; D64.9 Anemia, unspecified; D69.6 Thrombocytopenia, unspecified; E83.39 Other disorders of phosphorus metabolism; E83.51 Hypocalcemia; E87.5 Hyperkalemia; E87.6 Hypokalemia; L89.152 Pressure ulcer of sacral region, stage 2; R13.10 Dysphagia, unspecified; T38.0X5A Adverse effect of glucocorticoids and synthetic analogues, initial encounter; T50.2X5A Adverse effect of carbonic-anhydrase inhibitors, benzothiadiazides and other diuretics, initial encounter; Z22.322 Carrier or suspected carrier of Methicillin resistant Staphylococcus aureus
CPT/HCPCS: 31720; 36415; 36569; 36600; 71010-TC; 74000-TC; 80048-TC; 80053-TC; 80061-TC; 80076-TC; 80202-TC; 81000-TC; 82040-TC; 82272-TC; 82306; 82378; 82803-TC; 82962-TC; 83010; 83540-TC; 83615-TC; 83735-TC; 83880; 84100-TC; 84439-TC; 84443-TC; 84484-TC; 84550-TC; 85025-TC; 85027-TC; 85045-TC; 85396; 85610-TC; 86022; 86850-TC; 86901; 86921-TC; 87040-TC; 87070-TC; 87081-TC; 87086-TC; 87186-TC; 90935-TC; 92521; 92526; 93307-TC; 93970-TC; 94003-TC; 94760-TC; 94799-TC; 97001-TC; 99082-TC; A4216; A4606; A6248; A6253; A6402; A6403; C1750; C1751; C9113; J0282; J0330; J1160; J1630; J1644; J1650; J1815; J1940; J2185; J2248; J2270; J2274; J2543; J2765; J2920; J3370; J3475; J3480; J3490; J7030; J7040; J7042; J7050; J7060; J8597; P9016-BL; P9047; Z7610